=== PATIENT | male | born 1935 | race Caucasian/White ===

== ENCOUNTER 2017-02-12 07:27 | Outpatient (CLI) | payer MEDICARE, OTHER | END 2017-02-12 07:28 | disposition home or self-care (01) | LOC: LAB.N 07:27 | PROVIDERS: ATTEND Urology | DX: C61 Malignant neoplasm of prostate (principal); R03.0 Elevated blood-pressure reading, without diagnosis of hypertension | CPT/HCPCS: 36415; 84153 ==

== ENCOUNTER 2018-02-09 13:04 | Outpatient (CLI) | payer MEDICARE, OTHER | END 2018-02-09 13:05 | LOC: LAB.N 13:04 | PROVIDERS: ATTEND Urology | DX: C61 Malignant neoplasm of prostate (principal) | CPT/HCPCS: 36415; 84153 ==

== ENCOUNTER 2019-03-05 08:00 | Outpatient (CLI) | payer MEDICARE, OTHER | END 2019-03-05 23:59 | disposition home or self-care (01) | LOC: LAB.N 08:00 | PROVIDERS: ATTEND Urology | DX: Z85.46 Personal history of malignant neoplasm of prostate (principal) | CPT/HCPCS: 36415; 84153 ==

== ENCOUNTER 2022-03-29 11:10 | Outpatient (CLI) | payer MEDICARE, OTHER | END 2022-03-29 11:11 | disposition EMS.NT | LOC: EMS 11:10 | DX: R41.0 Disorientation, unspecified (principal) ==

== ENCOUNTER 2022-08-21 12:15 | Emergency (ER) | payer MEDICARE, OTHER ==
[2022-08-21 16:15] VITALS: BP 154/52
--- NOTE | 2022-08-21 16:29 | ED Physician Documentation ---
History of Present Illness - Stated complaint Stated Complaint: WEAKNESS/SOA - Chief complaint Chief Complaint: Back Pain - History obtained from History obtained from: Patient, Family - Additonal information Additional information: The patient is brought to the emergency department by his for chief complaint of difficulty walking over the last couple of days. The patient has a history of dementia and is not able to give much history himself. The states he has had dementia for about 5 years but seems worse in the last year. He is often forgetful and they were seen a couple of times at [facility] last week for concerns regarding the dementia. Apparently at that time, he was not having any trouble with the walking, however. Patient's states that just seems as though the patient is generally weak and a little off balance. However, she has not noticed any focal deficits. No infectious symptoms such as cough or dysuria. Patient has not had any fevers. Although he stated in triage to the triage nurse that he had had shortness of breath, the patient denies it now and the states she that the patient has not made any such complaints to her at home. She also has not objectively noticed any dyspnea. Review of the records from [place] reveals that he was seen for reasons that were unclear at their ED but seem to center around the dementia. Patient does not have a primary care physician which seems to be part of the issue. The states that they do have an appointment coming up on Friday which is 5 days from now with a [facility] Records also reveal that the patient did see psychosocial rehabilitation counselor over at [facility], And discussed the options of in-home care assisted living facilities, and memory care, but the son was concerned a bout the cost and lack of coverage from insurance and wanted to be able to speak with the rest of the family before making a decision as to what to do with the patient. Review of Systems Ten Systems: 10 systems reviewed and negative Constitutional: reports: Reviewed and negative Eyes: reports: Reviewed and negative Ears: reports: Reviewed and negative Nose: reports: Reviewed and negative Throat: reports: Reviewed and negative Cardiac: reports: Reviewed and negative Respiratory: reports: Reviewed and negative GI: reports: Reviewed and negative : reports: Reviewed and negative Skin: reports: Reviewed and negative Musculoskeletal: reports: Reviewed and negative Neurologic: reports: Generalized weakness Psychiatric: reports: Reviewed and negative Endocrine: reports: Reviewed and negative Immunocompromised: reports: Reviewed and negative PD PAST MEDICAL HISTORY - Allergies Allergies/Adverse Reactions: Allergies Allergy/AdvReac Type Severity Reaction Status Date / Time No Known Drug Allergies Allergy Verified 08/21/22 12:47 PD ED PE NORMAL - Vitals Vital signs reviewed: Yes - General General: No acute distress, Well developed/nourished, Other (Alert and conversant, but somewhat repetitive in his speech.) - HEENT HEENT: Atraumatic, PERRL, EOMI, Moist mucous membranes - Neck Neck: Supple, no meningeal sign - Cardiac Cardiac: RRR, No murmur - Respiratory Respiratory: No respiratory distress, Clear bilaterally - Abdomen Abdomen: Soft, Non tender, Non distended - Derm Derm: Normal color, Warm and dry, No rash - Extremities Extremities: No deformity, No edema, No calf tenderness / cord - Neuro Neuro: Other (Alert and conversant. Otherwise grossly intact. Oriented to self and the fact that he is at the hospital.) - Psych Psych: Normal mood, Normal affect Results - Vitals Vitals: Oxygen O2 Source Room air - Labs Labs: Laboratory Tests 08/21/22 08/21/22 08/21/22 16:45 16:45 16:45 WBC 6.6 RBC 3.94 L Hgb 12.1 L Hct 37.3 L MCV 94.7 H MCH 30.7 MCHC 32.4 RDW 16.2 H Plt Count 177 MPV 10.1 Neut # (Auto) 3.6 Lymph # (Auto) 2.1 Bell # (Auto) 0.7 Eos # (Auto) 0.1 Baso # (Auto) 0.0 Absolute Nucleated RBC 0.00 Nucleated RBC % 0.0 Sodium 140 Potassium 3.9 Chloride 102 Carbon Dioxide 28 Anion Gap 10.0 BUN 13 Creatinine 1.4 H Estimated GFR (MDRD) 48 L Glucose 92 Calcium 9.3 Total Bilirubin 0.8 AST 31 ALT 19 Alkaline Phosphatase 63 B-Natriuretic Peptide 119 H Total Protein 7.3 Albumin 4.2 Globulin 3.1 Albumin/Globulin Ratio 1.4 Lipase 56 H PD MEDICAL DECISION MAKING - ED course Complexity details: reviewed results, re-evaluated patient, considered differential, d/w patient ED course: The patient's work-up was unremarkable, and he passed an ambulation test without difficulty. Most of the concerns regarding his condition seemed to be chronic, and pt had an appointment coming up with his PCP, as well as had just had an eval by CLIFFORD at [place]. I felt he was stable for d/c home. We have discussed the usual indications for return. Departure - Departure Disposition: 01 Home, Self Care Clinical Impression: Dehydration Dementia Qualifiers: Dementia type: unspecified type Dementia severity: moderate Dementia behavioral or psychological symptom: without behavioral, psychotic, or mood disturbance or anxiety Qualified Code(s): F03.B0 - Unspecified dementia, moderate, without behavioral disturbance, psychotic disturbance, mood disturbance, and anxiety Condition: Stable Instructions: ED Dehydration, ED Dementia Caregiver Support Comments: The labs look good, as does the EKG and chest x-ray. You have not been drinking enough fluid lately, and have likely been dehydrated, which can cause weakness and imbalance. You have been hydrated with a liter of IV fluid in the ER today. It is very important you drink plenty of water every day. Mountain Dew does not take the place of water, as this will actually make you more dehydrated by causing your kidneys to put out excess fluid. Please continue your plans to follow-up with your primary doctor early next week to discuss further care for the dementia. Discharge Date/Time: 08/21/22 17:23
[2022-08-21 16:55] LABS: BASOPHILS % (AUTO) 0.5 %; EOSINOPHILS # (AUTO) 0.1 10^3/uL (0.0-0.7); HCT - HEMATOCRIT 37.3 % (42.0-52.0); HGB - HEMOGLOBIN 12.1 g/dL (14.0-18.0); LYMPHOCYTES # (AUTO) 2.1 10^3/uL (1.5-3.5); LYMPHOCYTES % (AUTO) 31.7 %; MEAN CORPUSCULAR HEMOGLOBIN 30.7 pg (27.0-31.0); MEAN CORPUSCULAR HGB CONC 32.4 g/dL (32.0-36.0); MEAN CORPUSCULAR VOLUME 94.7 fL (80.0-94.0); MEAN PLATELET VOLUME 10.1 fL (7.4-11.4); MONOCYTES # (AUTO) 0.7 10^3/uL (0.0-1.0); MONOCYTES % (AUTO) 11.1 %; NEUTROPHILS # (AUTO) 3.6 10^3/uL (1.5-6.6); NEUTROPHILS % (AUTO) 54.5 %; PLT - PLATELET COUNT 177 10^3/uL (130-450); RED BLOOD COUNT 3.94 10^6/uL (4.70-6.10); RED CELL DISTRIBUTION WIDTH 16.2 % (12.0-15.0); WHITE BLOOD COUNT 6.6 x10^3/uL (4.8-10.8)
--- NOTE | 2022-08-21 16:57 | XRAY Report ---
PROCEDURE: Chest 1 View X-Ray INDICATIONS: chest pain TECHNIQUE: One view of the chest was acquired. COMPARISON: None. FINDINGS: Surgical changes and devices: Large joint wires Lungs and pleura: Right costophrenic sulcus not included on exam. Minimal lungs and pleural spaces a re clear Mediastinum: Mediastinal contours appear normal. Heart size is normal. Bones and chest wall: Degenerative changes noted in both shoulders. Probable loose bodies noted in t he right. There has been resection of the distal right clavicle IMPRESSION: No acute cardiopulmonary findings Reviewed by: Alexi La MD on 08/21/2022 3:56 PM [place] Approved by: Alexi La MD on 08/21/2022 3:56 PM [place] Station ID: [id number]
[2022-08-21 17:02] LABS: ALBUMIN 4.2 g/dL (3.2-5.5); ALBUMIN/GLOBULIN RATIO 1.4 (1.0-2.2); BILIRUBIN,TOTAL 0.8 mg/dL (0.2-1.0); CALCIUM 9.3 mg/dL (8.5-10.3); CREATININE 1.4 mg/dL (0.6-1.2); POTASSIUM 3.9 mmol/L (3.5-5.0); TOTAL PROTEIN 7.3 g/dL (6.7-8.2)
== END 2022-08-21 17:23 | disposition home or self-care (01) ==
LOC: ED 12:15
DX: F03.B0 Unspecified dementia, moderate, without behavioral disturbance, psychotic disturbance, mood disturbance, and anxiety (principal); E86.0 Dehydration
CPT/HCPCS: 36415; 80053; 83690; 83880; 85025; 93005; 99282; 99283

== ENCOUNTER 2022-08-30 09:47 | Emergency (ER) | payer MEDICARE, OTHER ==
[2022-08-30 10:22] LABS: BASOPHILS % (AUTO) 0.4 %; EOSINOPHILS # (AUTO) 0.1 10^3/uL (0.0-0.7); EOSINOPHILS % (AUTO) 2.9 %; HCT - HEMATOCRIT 35.8 % (42.0-52.0); HGB - HEMOGLOBIN 11.5 g/dL (14.0-18.0); LYMPHOCYTES # (AUTO) 1.4 10^3/uL (1.5-3.5); MEAN CORPUSCULAR HEMOGLOBIN 30.3 pg (27.0-31.0); MEAN CORPUSCULAR HGB CONC 32.1 g/dL (32.0-36.0); MEAN CORPUSCULAR VOLUME 94.2 fL (80.0-94.0); MEAN PLATELET VOLUME 9.8 fL (7.4-11.4); MONOCYTES # (AUTO) 0.5 10^3/uL (0.0-1.0); NEUTROPHILS # (AUTO) 2.9 10^3/uL (1.5-6.6); NEUTROPHILS % (AUTO) 58.5 %; PLT - PLATELET COUNT 186 10^3/uL (130-450); RED CELL DISTRIBUTION WIDTH 15.9 % (12.0-15.0); WHITE BLOOD COUNT 4.9 x10^3/uL (4.8-10.8)
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
[2022-08-30 10:36] LABS: ACETAMINOPHEN < 10 ug/mL (10-30); ALBUMIN 3.7 g/dL (3.2-5.5); ALBUMIN/GLOBULIN RATIO 1.2 (1.0-2.2); ALKALINE PHOSPHATASE 59 IU/L (42-121); ALT ALANINE AMINOTRANSFERASE 27 IU/L (10-60); AST ASPARTATE AMINOTRANSFERASE 43 IU/L (10-42); BILIRUBIN,TOTAL 0.6 mg/dL (0.2-1.0); BUN - BLOOD UREA NITROGEN 17 mg/dL (6-20); CARBON DIOXIDE - CO2 26 mmol/L (21-32); CHLORIDE 102 mmol/L (101-111); CREATININE 1.4 mg/dL (0.6-1.2); ETOH - ETHANOL < 5.0 mg/dL; GFR - MDRD 48 (>89); GLUCOSE 101 mg/dL (70-100); LIPASE 49 U/L (22-51); POTASSIUM 3.8 mmol/L (3.5-5.0); SALICYLATE < 6.0 mg/dL; SODIUM 139 mmol/L (135-145); TOTAL PROTEIN 6.8 g/dL (6.7-8.2)
[2022-08-30 10:39] LABS: MUDS CUTOFF CONCENTRATIONS CUTOFF CONC BELOW:
[2022-08-30 10:42] LABS: BILIRUBIN,URINE NEGATIVE (NEGATIVE); GLUCOSE, URINE (UA) NEGATIVE (NEGATIVE); KETONES,URINE (UA) NEGATIVE (NEGATIVE); LEUKOCYTE ESTERASE, URINE TRACE (NEGATIVE); NITRITE,URINE NEGATIVE (NEGATIVE); OCCULT BLOOD,URINE NEGATIVE (NEGATIVE); PROTEIN,URINE TRACE mg/dL (NEGATIVE); UROBILINOGEN,URINE 0.2 (NORMAL) E.U./dL (NORMAL)
[2022-08-30 10:55] LABS: AMPHETAMINE SCREEN,URINE NEGATIVE (NEGATIVE); BARBITURATE SCREEN,UR NEGATIVE (NEGATIVE); BENZODIAZEPINES SCREEN, URINE NEGATIVE (NEGATIVE); CLARITY,URINE CLEAR (CLEAR); COCAINE SCREEN URINE NEGATIVE (NEGATIVE); METHADONE SCREEN, URINE NEGATIVE (NEGATIVE); METHAMPHETAMINES SCREEN, URINE NEGATIVE (NEGATIVE); OPIATE SCREEN, URINE NEGATIVE (NEGATIVE); OXYCODONE SCREEN, URINE NEGATIVE (NEGATIVE); PROPOXYPHENE SCREEN, URINE NEGATIVE (NEGATIVE); THC CANNABINOID SCREEN, URINE NEGATIVE (NEGATIVE); TRICYCLIC ANTIDEPRESSANT,URINE NEGATIVE (NEGATIVE)
[2022-08-30 11:05] LABS: BACTERIA,URINE Few /HPF (None Seen); RBC,URINE 0-5 /HPF (0-5); SQUAMOUS EPITHELIAL CELL,UR RARE Squamous (<= Few); WBC,URINE 0-3 /HPF (0-3)
[2022-08-30] MEDS: DONEPEZIL 5 MG TABLET PO SCH (20:44)
[2022-08-30] MEDS: MEMANTINE 5 MG TABLET PO SCH (20:44)
[2022-08-30] MEDS: QUEtiapine 25 MG TABLET PO SCH (20:44)
[2022-08-30] MEDS ORDERED: OLANZapine ODT 5 MG TABLET TL STA ×2 (21:54→21:55)
[2022-08-30] MEDS ORDERED: LORazepam 2 MG/ML VIAL IM STA (23:16)
[2022-08-30] MEDS ORDERED: LORazepam 2 MG/ML VIAL ONE (23:17)
--- NOTE | 2022-08-30 23:18 | ED Physician Documentation ---
ED Addendum - Addendum Addendum: 08/30/22 23:17 Care of patient signed out to me by Dr. Omalley. Please see her note for detailed H+P. Patient became increasingly agitated. Initially, he was wandering outside of his room and was able to be redirected back into his room, though reluctantly. He was given the dose of QHS seroquel ordered by Dr. Omalley. He continued to get up and wander, at times raising his voice to staff and insisting he can walk wherever he wants. After much coaxing, he eventually was corralled back into his room and was given 10mg TL zyprexa, which he again took willingly and thus these medications (zyprexa, seroquel) were given to help him sleep rather than being used as a restraint. Unfortunately, his behavior continued to escalate to the point of requiring IM lorazepam which is now being administered for behavior that has become dangerous for patient care (both this patient, as he is unsteady in gait and thus fall risk, as well as other patients, as he has tried to walk into other patient's rooms at times). Thus the IM lorazepam is chemical restraint and appropriate documentation is filled out in this chart by me.
--- NOTE | 2022-08-31 00:06 | ED Physician Documentation ---
Restraint [id number] - Immediate Situation Face to Face Evaluation Date: 08/31/22 Face to Face Evaluation Time: 00:04 Restraint Classification: Violent, chemical Restraint Type: Physical hold - Patient's Reaction & Behaviors Safety: Physically safe Other: Resting quietly - Behavioral Condition Attitude: Other (confused) Behavior: Withdrawn Orientation: Person Mood: Other (drowsy due to medications given) - Evaluation Review of Systems: see H+P Pertinent History/Illicit Drugs/Medications/Results: see H+P - Plan Need to Continue or Terminate Violent or Chemical Restraint: chemical restraints only at this time; cannot discontinue medications already given.
[2022-08-31] MEDS ORDERED: LORazepam 2 MG/ML VIAL IM STA ×2 (04:34→22:20)
--- NOTE | 2022-08-31 05:15 | ED Physician Documentation ---
Restraint [id number] - Immediate Situation Face to Face Evaluation Date: 08/31/22 Face to Face Evaluation Time: 05:13 Restraint Classification: Violent, chemical w/ physical hold Restraint Type: Physical hold - Patient's Reaction & Behaviors Safety: Non-compliant Verbal: Demanding Harm: Potential harm to others Physical: Aggressive behavior - Behavioral Condition Attitude: Indifferent Behavior: Agitated Orientation: Person Mood: Angry - Evaluation Review of Systems: see H+P Pertinent History/Illicit Drugs/Medications/Results: see H+P - Plan Need to Continue or Terminate Violent or Chemical Restraint: chemical restraint only; cannot discontinue medication that has been given and this medication is not ordered as a scheduled medication
[2022-08-31] MEDS: ASPIRIN CHEW 81 MG TABLET PO SCH (14:51)
[2022-08-31] MEDS: amLODIPine 5 MG TABLET PO SCH (14:51)
[2022-08-31] MEDS: METOPROLOL SUCCINATE 25 MG TABLET PO SCH (14:52)
[2022-08-31] MEDS: MEMANTINE 5 MG TABLET PO SCH ×2 (14:52→20:48)
[2022-08-31] MEDS: haloperidoL 1 MG TABLET PO SCH ×2 (14:52→20:48)
[2022-08-31] MEDS ORDERED: HALOPERIDOL 5 MG/ML VIAL IM STA ×2 (15:57→22:16)
[2022-08-31] MEDS ORDERED: diphenhydrAMINE ELIXIR 25 MG/10 ML UDC PO STA (15:57)
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
[2022-08-31] MEDS: DONEPEZIL 5 MG TABLET PO SCH (20:48)
[2022-08-31] MEDS: QUEtiapine 25 MG TABLET PO SCH ×2 (20:48→22:13)
[2022-08-31] MEDS ORDERED: LORazepam 2 MG/ML VIAL ONE (22:15)
--- NOTE | 2022-08-31 22:19 | ED Physician Documentation ---
Restraint [id number] - Immediate Situation Face to Face Evaluation Date: 08/31/22 Face to Face Evaluation Time: 22:22 Restraint Classification: Violent, chemical Restraint Type: Physical hold (Bed in Trendelenburg, to encourage patient to stay in bed) - Patient's Reaction & Behaviors Safety: Physically unsafe, Non-compliant Harm: Potential harm to others Physical: Aggressive behavior, Kicking - Behavioral Condition Attitude: Indifferent Behavior: Agitated Orientation: Disoriented to all Mood: Angry - Evaluation Review of Systems: see H+P Pertinent History/Illicit Drugs/Medications/Results: see H+P - Plan Need to Continue or Terminate Violent or Chemical Restraint: One-time order for medication, unable to Discontinue once medication has been administered
[2022-08-31] MEDS ORDERED: QUEtiapine 25 MG TABLET PO STA (23:48)
--- NOTE | 2022-09-01 00:23 | TELEPSYCH PHYS NOTE ---
Telepsych Consultation Note Consult: Name: PRETTY FREEMAN : 1935 Date and Time: 09/01/2022 2:12:09 AM Location of the patient: [facility] ED Location of the doctor: [place] Length of consult: 45 min This evaluation was conducted via video telepsychiatry with the assistance of onsite staff Reason for consult: agitation Requested by: History of Present Illness: Patient is 86-year-old male with a history of dementia was brought to the ER due to agitation in the home. The patient has been agitated in the ER as well. He is currently receiving Haldol 1 mg PO BID and cervical 25 mg HS (both start in the ER). He is also received Haldol I am, Zyprexa IM, and Ativan I am at times what you episodes. Psychiatry was consult for medication recommendations. When interviewed, the patient did not answer questions and did not make eye contact. He completely ignored interviewer while staring at the ceiling closing his eyes. No useful information could be gathered. Collateral Contacted: No Reason for not contacting the collateral:None available Sleep issues?: Yes Sleep Quantity: Sleep Quality: Psychiatric History/Treatment History: Past diagnoses: dementia Hospitalizations: No Current Treatment:No Suicide Assessment: PSS-3: 1) Over the past 2 weeks have you felt down, depressed or hopeless? Unknown-NA 2) Over the past 2 weeks have you had thoughts of killing yourself? Unknown-NA 3) Have you ever in your life attempted to kill yourself? Unknown-NA Within the past 6 months? [facility] Safety Assessment: Risk Factors Stressors: none Attempts/Self-injury: Unknown-NA Impulsivity:Unknown-NA Drug/Alcohol History:Unknown-NA Trauma History:Unknown-NA Access to firearms:Unknown-NA HI/Violence/Property destruction:Unknown-NA Legal: Unknown-NA Family Psych History:Unknown-NA Family History of suicide:Unknown-NA Protective Factors: Can handle stress well? No Congregational? Unknown-NA External: Social supports/ Therapeutic relationships: Yes Description: Relationship history: Living situation: lives with Employment: No Education: unknown Responsibility to family/children/work: No Future orientation:Unknown-NA Health History: Medical History: HTN Medications & Freq: amlodipine, aspirin, Aricept, Namenda, metoprolol Allergies: nkda Mental Status Exam: Appearance and Attire: Psychomotor agitation: Psychomotor retardation Attitude and behavior: Guarded Speech: Selectively mute Mood: unable to assess Affect: Constricted Thought process: Circumstantial Thought content: Perception: unable to assess Intel: unable to assess Abstract: Poor reasoning Language: unable to assess Orientation: Oriented to person Sense: unknown Knowledge: unknown Memory: unable to assess Insight: Severe impairment Judgement: Moderate impairment Gait: Unable to assess, patient lying down Impression/Risk Assessment: Current Suicide Risk Elevated? No Current Violence Risk Elevated? Yes Issues with ability to care for self? Yes Summary: The pt is an 89 yo male with dementia who arrives in the ER due to agitation and confusion. Psychiatry was consulted for med recommendations. Benzos should be avoided if possible as it can worsen confusion. The pt is unlikely to benefit from inpt care. He should be released home with meds if possible. Diagnosis: F03.91 Unspecified dementia with behavioral disturbance CPT Codes: 75080 - Psychiatric Diagnostic Evaluation with Medical Services Treatment Plan: General: Level of Care: pt is currnently under MARY JANE. Staff is trying to contact family to possibly sent the pt home Psychiatric Clearance: No Observation level 1:1 needed?: Yes Pharmacological: Continue Haldol 1 mg PO BID. Start Seroquel 25 mg QAM and 50 mg HS. Utilize Haldol or Zyprexa IM for acute agitation Patient psychotic?No Therapy: Supportive Follow up needed while in the hospital?: Yes Number of times: Daily Discussed plan with onsite steamtable worker: Yes Who Dr. Omalley Other: n/a Mitesh Tim MD [facility] List names and roles of persons who participated in consult: Mitesh Tim MD. [facility]
--- NOTE | 2022-09-01 04:37 | ED Physician Documentation ---
ED Addendum - Addendum Addendum: Telepsych was consulted during the day for medication recommendations. I did speak with Dr. Tim Regarding the patient's case. Per Dr. Tim the patient is unlikely to benefit from inpatient care and should be released home with meds if possible. He recommends continuing Haldol 1 mg p.o. twice daily. He recommends starting Seroquel 25 mg every morning and increasing at the already started night Seroquel dose to 50 mg.He also recommends utilizing Haldol or Zyprexa IM for acute agitation with the avoidance of benzodiazepines if possible. I have ordered the adjusted doses of Seroquel scheduled for the patient.
[2022-09-01] MEDS: amLODIPine 5 MG TABLET PO SCH (12:28)
[2022-09-01] MEDS: METOPROLOL SUCCINATE 25 MG TABLET PO SCH (12:28)
[2022-09-01] MEDS: haloperidoL 1 MG TABLET PO SCH ×2 (12:28→21:00)
[2022-09-01] MEDS: MEMANTINE 5 MG TABLET PO SCH ×2 (12:28→21:00)
[2022-09-01] MEDS: ASPIRIN CHEW 81 MG TABLET PO SCH (12:28)
[2022-09-01] MEDS: QUEtiapine 25 MG TABLET PO SCH (12:28)
[2022-09-01] MEDS ORDERED: QUEtiapine 25 MG TABLET PO SCH (21:00)
[2022-09-01] MEDS: DONEPEZIL 5 MG TABLET PO SCH (21:00)
[2022-09-02] MEDS: QUEtiapine 25 MG TABLET PO SCH (12:29)
[2022-09-02] MEDS: METOPROLOL SUCCINATE 25 MG TABLET PO SCH (12:29)
[2022-09-02] MEDS: haloperidoL 1 MG TABLET PO SCH (12:29)
[2022-09-02] MEDS: MEMANTINE 5 MG TABLET PO SCH (12:29)
[2022-09-02] MEDS: ASPIRIN CHEW 81 MG TABLET PO SCH (12:29)
[2022-09-02] MEDS: amLODIPine 5 MG TABLET PO SCH (12:29)
--- NOTE | 2022-09-02 13:41 | ED Physician Documentation ---
ED Addendum - Addendum Addendum: 09/02/22 13:37 Yesi our health social work professor had talked with the patient's and investigated placement options. He is [employer] coverage/ for life and apparently the long- term care coverage will still require [id number] expense. This was cost prohibitive for the family. The patient has been doing well here the past couple of days once started on a regimen of mood stabilizing medication including Haldol 1 mg twice daily and Seroquel 50 mg at night. At this point the option is for the to have the patient back home. She is willing to do this with the above prescriptions and see how he does with those. He was positive for COVID but has minimal respiratory symptoms and good vital signs and saturations. Consideration would be if the current viral illness is causing some added agitation and therefore the behavioral abnormalities. Hopefully that would be short-term then as the COVID passes over the next couple of weeks. However he has had dementia and this may be just a natural progression with some behavioral manifestations. I will send the prescriptions to the [facility]. Objective: The patient is awake and conversant. He is cooperative. He did have some breakfast. No report of agitation or behavioral abnormalities overnight. Assessment: 1. History of dementia 2. Dementia with behavioral abnormality, new 3. COVID infection Disposition: The patient is discharged home in stable condition.
[2022-09-02 15:07] VITALS: BP 124/64
== END 2022-09-02 15:15 | disposition home or self-care (01) ==
LOC: EDUNIT# → ED 09:47
DX: F03.911 Unspecified dementia, unspecified severity, with agitation (principal); U07.1 COVID-19
CPT/HCPCS: 36415; 80053; 80306; 80307; 81001; 83690; 84439; 84443; 85025; 87086; 87635; 96372; 99281; 99285; A9270; G0425; G0480; J2060; Q3014; 80320; 80329; 81003

== ENCOUNTER → 2022-08-30 | Outpatient (CLI) | payer MEDICARE, OTHER | END | disposition critical access hospital (66) | LOC: EMS 09:30 | DX: Z04.6 Encounter for general psychiatric examination, requested by authority (principal); F03.911 Unspecified dementia, unspecified severity, with agitation | CPT/HCPCS: A0425; A0429 ==

== ENCOUNTER 2022-09-02 15:20 | Outpatient (CLI) | payer MEDICARE, OTHER | END 2022-09-02 15:21 | disposition home or self-care (01) | LOC: EMS 15:20 | PROVIDERS: ATTEND Emergency Medicine | DX: R41.0 Disorientation, unspecified (principal); F03.911 Unspecified dementia, unspecified severity, with agitation | CPT/HCPCS: A0425; A0428 ==

== ENCOUNTER 2022-11-11 21:20 | Outpatient (CLI) | payer MEDICARE, OTHER | END 2022-11-11 21:21 | disposition critical access hospital (66) | LOC: EMS 21:20 | DX: R33.9 Retention of urine, unspecified (principal); R10.31 Right lower quadrant pain; N48.9 Disorder of penis, unspecified | CPT/HCPCS: A0425; A0429 ==

== ENCOUNTER 2022-11-11 21:38 | Emergency (ER) | payer MEDICARE, OTHER ==
--- OUTSIDE RECORDS SUMMARY | 2022-11-11 21:49 | EXTERNAL MEDICAL SUMMARY RPT | Continuity of Care Document ---
:1935 Author Organization Helper Address [address] [place] [address] Phone Care Team Providers Name Role Phone Perez Soria Unavailable Unavailable Allergies and Intolerances date description facility type (no date) No Known Drug Allergies [facility] ([facility]kn own) Encounters No information. Functional Status No information. Immunizations No information. Medications date description facility 2022-08-13 00:00 Furosemide [facility] Problems date description facility 2022-08-13 00:00 Shortness of breath [facility] 2022-08-16 00:00 Dementia [facility] 2022-08-16 00:00 Acute situational disturbance [facility] Procedures date description facility 2022-08-13 00:00 X-ray of chest, single view [facility] Results/Labs test date author facility value unit interpret ation Result panel 1 (unknown) (no date[facility]) Result panel 2 (unknown) (no date) (unknown[facility]) Result panel 3 (unknown) (no date) (unknown[facility]) Result panel 4 (unknown) (no date) (unknown[facility]) Result panel 5 (unknown) (no date) (unknown[facility]) Result panel 6 (unknown) (no date) (unknown[facility]) Result panel 7 (unknown) (no date) (unknown[facility]) Result panel 8 (unknown) (no date) (unknown[facility]) Result panel 9 (unknown) (no date) (unknown[facility]) Result panel 10 (unknown) (no date) (unknown[facility]) Result panel 11 (unknown) (no date) (unknown[facility]) Result panel 12 (unknown) (no date) (unknown[facility]) Result panel 13 (unknown) (no date) (unknown[facility]) Result panel 14 (unknown) (no date) (unknown[facility]) Result panel 15 (unknown) (no date) (unknown[facility]) Result panel 16 (unknown) (no date) (unknown[facility]) Result panel 17 (unknown) (no date) (unknown[facility]) Result panel 18 (unknown) (no date) (unknown[facility]) Result panel 19 (unknown) (no date) (unknown[facility]) Result panel 20 (unknown) (no date) (unknown[facility]) Result panel 21 (unknown) (no date) (unknown[facility]) Result panel 22 (unknown) (no date) (unknown[facility]) Result panel 23 (unknown) (no date) (unknown[facility]) Result panel 24 (unknown) (no date) (unknown[facility]) Result panel 25 (unknown) (no date) (unknown[facility]) Result panel 26 (unknown) (no date) (unknown[facility]) Result panel 27 (unknown) (no date) (unknown[facility]) Result panel 28 (unknown) (no date) (unknown[facility]) Result panel 29 (unknown) (no date) (unknown[facility]) Result panel 30 (unknown) (no date) (unknown[facility]) Result panel 31 (unknown) (no date) (unknown[facility]) Result panel 32 (unknown) (no date) (unknown[facility]) Result panel 33 (unknown) (no date) (unknown[facility]) Result panel 34 (unknown) (no date) (unknown[facility]) Result panel 35 (unknown) (no date) (unknown[facility]) Result panel 36 (unknown) (no date) (unknown[facility]) Result panel 37 (unknown) (no date) (unknown[facility]) Result panel 38 (unknown) (no date) (unknown[facility]) Result panel 39 (unknown) (no date) (unknown[facility]) Result panel 40 (unknown) (no date) (unknown[facility]) Result panel 41 (unknown) (no date) (unknown[facility]) Result panel 42 (unknown) (no date) (unknown[facility]) Result panel 43 (unknown) (no date) (unknown[facility]) Result panel 44 (unknown) (no date) (unknown[facility]) Result panel 45 (unknown) (no date) (unknown[facility]) Result panel 46 (unknown) (no date) (unknown[facility]) Result panel 47 (unknown) (no date) (unknown[facility]) Result panel 48 (unknown) (no date) (unknown[facility]) Result panel 49 (unknown) (no date) (unknown[facility]) Result panel 50 (unknown) (no date) (unknown[facility]) Result panel 51 (unknown) (no date) (unknown[facility]) Result panel 52 (unknown) (no date) (unknown[facility]) Result panel 53 (unknown) (no date) (unknown[facility]) Result panel 54 (unknown) (no date) (unknown[facility]) Result panel 55 (unknown) (no date) (unknown[facility]) Result panel 56 (unknown) (no date) (unknown[facility]) Result panel 57 (unknown) (no date) (unknown[facility]) Result panel 58 (unknown) (no date) (unknown[facility]) Result panel 59 (unknown) (no date) (unknown[facility]) Result panel 60 (unknown) (no date) (unknown[facility]) Result panel 61 (unknown) (no date) (unknown[facility]) Result panel 62 (unknown) (no date) (unknown[facility]) Result panel 63 (unknown) (no date) (unknown[facility]) Result panel 64 (unknown) (no date) (unknown[facility]) Result panel 65 (unknown) (no date) (unknown[facility]) Result panel 66 (unknown) (no date) (unknown[facility]) Result panel 67 (unknown) (no date) (unknown[facility]) Result panel 68 (unknown) (no date) (unknown[facility]) Result panel 69 (unknown) (no date) (unknown[facility]) Result panel 70 (unknown) (no date) (unknown[facility]) Result panel 71 (unknown) (no date) (unknown[facility]) Result panel 72 (unknown) (no date) (unknown[facility]) Result panel 73 (unknown) (no date) (unknown[facility]) Result panel 74 (unknown) (no date) (unknown[facility]) Result panel 75 (unknown) (no date) (unknown[facility]) Result panel 76 (unknown) (no date) (unknown[facility]) Result panel 77 (unknown) (no date) (unknown[facility]) Result panel 78 (unknown) (no date) (unknown[facility]) Result panel 79 (unknown) (no date) (unknown[facility]) Result panel 80 (unknown) (no date) (unknown[facility]) Result panel 81 (unknown) (no date) (unknown[facility]) Result panel 82 (unknown) (no date) (unknown[facility]) Result panel 83 (unknown) (no date) (unknown[facility]) Result panel 84 (unknown) (no date) (unknown) [facility]) Result panel 85 (unknown) (no date) (unknown[facility]) Result panel 86 (unknown) (no date) (unknown[facility]) Result panel 87 (unknown) (no date) (unknown[facility]) Result panel 88 (unknown) (no date) (unknown[facility]) Result panel 89 (unknown) (no date) (unknown[facility]) Result panel 90 (unknown) (no date) (unknown[facility]) Result panel 91 (unknown) (no date) (unknown[facility]) Result panel 92 (unknown) (no date) (unknown[facility]) Result panel 93 (unknown) (no date) (unknown[facility]) Result panel 94 (unknown) (no date) (unknown[facility]) Result panel 95 (unknown) (no date) (unknown[facility]) Result panel 96 (unknown) (no date) (unknown[facility]) Result panel 97 (unknown) (no date) (unknown[facility]) Result panel 98 (unknown) (no date) (unknown[facility]) Result panel 99 (unknown) (no date) (unknown[facility]) Result panel 100 (unknown) (no date) (unknown[facility]) Result panel 101 (unknown) (no date) (unknown[facility]) Result panel 102 (unknown) (no date) (unknown[facility]) Result panel 103 (unknown) (no date) (unknown[facility]) Result panel 104 (unknown) (no date) (unknown[facility]) Result panel 105 (unknown) (no date) (unknown[facility]) Result panel 106 (unknown) (no date) (unknown[facility]) Result panel 107 (unknown) (no date) (unknown[facility]) Result panel 108 (unknown) (no date) (unknown[facility]) Result panel 109 (unknown) (no date) (unknown[facility]) Result panel 110 (unknown) (no date) (unknown[facility]) Result panel 111 (unknown) (no date) (unknown[facility]) Result panel 112 (unknown) (no date) (unknown[facility]) Result panel 113 (unknown) (no date) (unknown[facility]) Result panel 114 (unknown) (no date) (unknown[facility]) Result panel 115 (unknown) (no date) (unknown[facility]) Result panel 116 (unknown) (no date) (unknown[facility]) Result panel 117 (unknown) (no (unknown) (unknown) (no value) (units (unk nown) date) unknown) (unknown) (no (unknown) (unknown) 08/13/22 (units (unkno wn) date) unknown) (unknown) (no (unknown) (unknown) [address] [place] [address] (units (unknown) date) unknown) (unknown) (no (unknown) (unknown) Accession Number: (units (unknown) date) [id number] unknown) (unknown) (no (unknown) (unknown) Age/Sex: 86 / M (units (unknown) date) Date of Service: unknown) (unknown) (no (unknown) (unknown) [place], [place] (units ( unknown) date) [id number] unknown) (unknown) (no (unknown) (unknown) Approved by: (units (u nknown) date) Olamide Montano M.D. on unknown) 08/13/2022 at 8:28 (unknown) (no (unknown) (unknown) Bones and chest (units (unknown) date) wall: No unknown) suspicious bony lesions. Overlying soft tissues (unknown) (no (unknown) (unknown) COMPARISON: (units (un known) date) [facility], unknown) CR, XR CHEST 1 VIEW, 11/02/2021, 8:42. (unknown) (no (unknown) (unknown) : 1935 (units (unknown) date) Acct:[id number] unknown) (unknown) (no (unknown) (unknown) Dictated by: (units (u nknown) date) Olamide Montano M.D. on unknown) 08/13/2022 at 8:28 (unknown) (no (unknown) (unknown) FINDINGS: (units (unkn own) date) unknown) (unknown) (no (unknown) (unknown) IMPRESSION: No (units (unknown) date) acute unknown) cardiopulmonary disease. (unknown) (no (unknown) (unknown) INDICATIONS: SOB (units (unknown) date) unknown) (unknown) (no (unknown) (unknown) [facility] (units (unknown) date) unknown) (unknown) (no (unknown) (unknown) Loc: ED (units (unkno wn) date) unknown) (unknown) (no (unknown) (unknown) Lungs and pleura: (units (unknown) date) Lungs are clear. unknown) No pleural effusions or pneumothorax. (unknown) (no (unknown) (unknown) [id number] (units (unk nown) date) unknown) (unknown) (no (unknown) (unknown) Mediastinum: (units (u nknown) date) Mediastinal unknown) contours appear normal. Heart size is normal. (unknown) (no (unknown) (unknown) No significant (units (unknown) date) discrepancy with unknown) the shift stacker radiology preliminary report. (unknown) (no (unknown) (unknown) Ordering (units (unkno wn) date) Provider: unknown) Ralph Fleming D.O. (unknown) (no (unknown) (unknown) PROCEDURE: XR (units ( unknown) date) CHEST 1V unknown) (unknown) (no (unknown) (unknown) Patient: (units (unkno wn) date) Juarez Freeman unknown) MR#: (unknown) (no (unknown) (unknown) Procedure: XR (units ( unknown) date) chest 1V unknown) (unknown) (no (unknown) (unknown) Signed (units (unkno wn) date) unknown) (unknown) (no (unknown) (unknown) Surgical changes (units (unknown) date) and devices: unknown) Sternotomy. (unknown) (no (unknown) (unknown) TECHNIQUE: One (units (unknown) date) view of the chest unknown) was acquired. (unknown) (no (unknown) (unknown) XRay Report (units (un known) date) unknown) (unknown) (no (unknown) (unknown) appear (units (unkno wn) date) unknown) (unknown) (no (unknown) (unknown) unremarkable. (units ( unknown) date) unknown) Result panel 118 (unknown) (no date) (unknown) (unknown) 0.9 % (unkn own) (unknown) (no date) (unknown) (unknown) 100 /ul (unkn own) (unknown) (no date) (unknown) (unknown) 11.0 % (unkn own) (unknown) (no date) (unknown) (unknown) 12.7 g/dl (unkn own) (unknown) (no date) (unknown) (unknown) 16.8 % (unkn own) (unknown) (no date) (unknown) (unknown) 178 x10 3/ul (unkn own) (unknown) (no date) (unknown) (unknown) 1900 /ul (unkn own) (unknown) (no date) (unknown) (unknown) 200 /ul (unkn own) (unknown) (no date) (unknown) (unknown) 3.0 % (unkn own) (unknown) (no date) (unknown) (unknown) 30.1 pg (unkn own) (unknown) (no date) (unknown) (unknown) 30.5 % (unkn own) (unknown) (no date) (unknown) (unknown) 32.8 % (unkn own) (unknown) (no date) (unknown) (unknown) 3500 /ul (unkn own) (unknown) (no date) (unknown) (unknown) 38.8 % (unkn own) (unknown) (no date) (unknown) (unknown) 4.22 x10 6/ul (unkn own) (unknown) (no date) (unknown) (unknown) 54.6 % (unkn own) (unknown) (no date) (unknown) (unknown) 6.4 x10 3/ul (unkn own) (unknown) (no date) (unknown) (unknown) 700 /ul (unkn own) (unknown) (no date) (unknown) (unknown) 91.9 fl (unkn own) Result panel 119 (unknown) (no date) (unknown) (unknown) 0.9 mg/dl (unkn own) (unknown) (no date) (unknown) (unknown) 1.4 (units unknown) (unknown) (unknown) (no date) (unknown) (unknown) 1.49 mg/dl (unkn own) (unknown) (no date) (unknown) (unknown) 106 mmol/l (unkn own) (unknown) (no date) (unknown) (unknown) 12 mg/dl (unkn own) (unknown) (no date) (unknown) (unknown) 143 mmol/l (unkn own) (unknown) (no date) (unknown) (unknown) 28 mmol/l (unkn own) (unknown) (no date) (unknown) (unknown) 3.0 g/dl (unkn own) (unknown) (no date) (unknown) (unknown) 3.6 mmol/l (unkn own) (unknown) (no date) (unknown) (unknown) 37 iu/l (unkn own) (unknown) (no date) (unknown) (unknown) 4.3 g/dl (unkn own) (unknown) (no date) (unknown) (unknown) 45 iu/l (unkn own) (unknown) (no date) (unknown) (unknown) 46 ml/min (unkn own) (unknown) (no date) (unknown) (unknown) 46 ml/min (unkn own) (unknown) (no date) (unknown) (unknown) 7.3 g/dl (unkn own) (unknown) (no date) (unknown) (unknown) 72 u/l (unkn own) (unknown) (no date) (unknown) (unknown) 8.1 (units unknown) (unknown) (unknown) (no date) (unknown) (unknown) 9.2 mg/dl (unkn own) (unknown) (no date) (unknown) (unknown) 99 mg/dl (unkn own) (unknown) (no date) (unknown) (unknown) 99 mg/dl (unkn own) Result panel 120 (unknown) (no date) (unknown) (unknown) 2.1 mg/dl (unkn own) (unknown) (no date) (unknown) (unknown) 217 u/l (unkn own) (unknown) (no date) (unknown) (unknown) 465 u/l (unkn own) Result panel 121 (unknown) (no (unknown) (unknown) (no value) (units (unk nown) date) unknown) (unknown) (no (unknown) (unknown) [id number] (units (unkn own) date) unknown) (unknown) (no (unknown) (unknown) 03:25 03:25 (units (un known) date) 03:25 unknown) (unknown) (no (unknown) (unknown) 03:27 (units (unkno wn) date) unknown) (unknown) (no (unknown) (unknown) 08/13/22 03:25 (units (unknown) date) unknown) (unknown) (no (unknown) (unknown) 08/13/22 03:27 (units (unknown) date) unknown) (unknown) (no (unknown) (unknown) 08/13/22 03:32 (units (unknown) date) unknown) (unknown) (no (unknown) (unknown) 08/13/22 (units (unkno wn) date) 08/13/22 08/13/22 unknown) Range/Units (unknown) (no (unknown) (unknown) 08/13/22 (units (unkno wn) date) unknown) (unknown) (no (unknown) (unknown) ALT 37 (<50) (units (u nknown) date) IU/L unknown) (unknown) (no (unknown) (unknown) AST 45 (17-59) (units (unknown) date) IU/L unknown) (unknown) (no (unknown) (unknown) Age/Sex: 86 / M (units (unknown) date) unknown) (unknown) (no (unknown) (unknown) Albumin 4.3 (units (un known) date) (3.5-5.0) g/dL unknown) (unknown) (no (unknown) (unknown) Albumin/Globulin (units (unknown) date) Ratio 1.4 unknown) (1.0-2.8) (unknown) (no (unknown) (unknown) Alkaline (units (unkno wn) date) Phosphatase 72 unknown) (38-126) U/L (unknown) (no (unknown) (unknown) Allergies (units (unkn own) date) unknown) (unknown) (no (unknown) (unknown) Allergy/AdvReac (units (unknown) date) Type Severity unknown) Reaction Status Date / Time (unknown) (no (unknown) (unknown) BUN 12 (9-20) (units ( unknown) date) mg/dL unknown) (unknown) (no (unknown) (unknown) BUN/Creatinine (units (unknown) date) Ratio 8.1 (6-22) unknown) (unknown) (no (unknown) (unknown) Baso # (Auto) (units ( unknown) date) 100 (0-100) /uL unknown) (unknown) (no (unknown) (unknown) Baso % (Auto) (units ( unknown) date) 0.9 (0-2) % unknown) (unknown) (no (unknown) (unknown) Blood Pressure (units (unknown) date) 179/74 H 08/13/22 unknown) 03:27 (unknown) (no (unknown) (unknown) Blood Pressure (units (unknown) date) 179/74 H unknown) (unknown) (no (unknown) (unknown) Calcium 9.2 (units (un known) date) (8.4-10.2) mg/dL unknown) (unknown) (no (unknown) (unknown) Carbon Dioxide (units (unknown) date) 28 (22-32) mmol/L unknown) (unknown) (no (unknown) (unknown) Chief complaint: (units (unknown) date) Shortness of unknown) Breath/Dyspnea (unknown) (no (unknown) (unknown) Chloride 106 (units (u nknown) date) (98-107) mmol/L unknown) (unknown) (no (unknown) (unknown) Traci Ervin (units (unknown) date) MD [Primary unknown) Care Provider] (unknown) (no (unknown) (unknown) Complete Blood (units (unknown) date) Count AUTO DIFF unknown) Stat (unknown) (no (unknown) (unknown) Comprehensive (units ( unknown) date) Metabolic Panel unknown) Stat (unknown) (no (unknown) (unknown) Course (units (unkno wn) date) unknown) (unknown) (no (unknown) (unknown) Creatinine 1.49 (units (unknown) date) H (0.66-1.25) unknown) mg/dL (unknown) (no (unknown) (unknown) : 1935 (units (unknown) date) Acct:[id number] unknown) (unknown) (no (unknown) (unknown) Date of Service: (units (unknown) date) 08/13/22 unknown) (unknown) (no (unknown) (unknown) Departure (units (unkn own) date) unknown) (unknown) (no (unknown) (unknown) Discharge Plan (units (unknown) date) unknown) (unknown) (no (unknown) (unknown) ED Orders (units (unkn own) date) unknown) (unknown) (no (unknown) (unknown) EKG-12 Lead Stat (units (unknown) date) unknown) (unknown) (no (unknown) (unknown) ER Physician: (units ( unknown) date) Ralph Fleming unknown) D.O. (unknown) (no (unknown) (unknown) Emergency Report (units (unknown) date) unknown) (unknown) (no (unknown) (unknown) Eos # (Auto) 200 (units (unknown) date) (0-450) /uL unknown) (unknown) (no (unknown) (unknown) Eos % (Auto) 3.0 (units (unknown) date) (2-4) % unknown) (unknown) (no (unknown) (unknown) Estimated GFR 46 (units (unknown) date) L (>60) mL/min unknown) (unknown) (no (unknown) (unknown) Exam (units (unkno wn) date) unknown) (unknown) (no (unknown) (unknown) General (units (unkno wn) date) unknown) (unknown) (no (unknown) (unknown) Globulin 3.0 (units (u nknown) date) (1.7-4.1) g/dL unknown) (unknown) (no (unknown) (unknown) Glucose 99 (units (unk nown) date) (80-110) mg/dL unknown) (unknown) (no (unknown) (unknown) HPI - General (units ( unknown) date) Adult unknown) (unknown) (no (unknown) (unknown) Hct 38.8 L (units (unk nown) date) (41-53) % unknown) (unknown) (no (unknown) (unknown) Hgb 12.7 L (units (unk nown) date) (13.5-17.5) g/dL unknown) (unknown) (no (unknown) (unknown) Initial Vital (units ( unknown) date) Signs unknown) (unknown) (no (unknown) (unknown) Initial Vital (units ( unknown) date) Signs: unknown) (unknown) (no (unknown) (unknown) [facility] (units (unknown) date) [address] [place] [address] unknown) [place] [address] (unknown) (no (unknown) (unknown) Lab Data (units (unkno wn) date) unknown) (unknown) (no (unknown) (unknown) Lab Results (units (un known) date) unknown) (unknown) (no (unknown) (unknown) Labs: (units (unkno wn) date) unknown) (unknown) (no (unknown) (unknown) Lipase 217 (units (unk nown) date) (23-300) U/L unknown) (unknown) (no (unknown) (unknown) Lipase Stat (units (un known) date) unknown) (unknown) (no (unknown) (unknown) Lymph # (Auto) (units (unknown) date) 1900 ([id number]) unknown) /uL (unknown) (no (unknown) (unknown) Lymph % (Auto) (units (unknown) date) 30.5 (25-40) % unknown) (unknown) (no (unknown) (unknown) MCH 30.1 (26-34) (units (unknown) date) PG unknown) (unknown) (no (unknown) (unknown) MCHC 32.8 (units (unkn own) date) (30-36) % unknown) (unknown) (no (unknown) (unknown) MCV 91.9 (units (unkno wn) date) (80-100) fL unknown) (unknown) (no (unknown) (unknown) Magnesium 2.1 (units ( unknown) date) (1.6-2.3) mg/dL unknown) (unknown) (no (unknown) (unknown) Magnesium Stat (units (unknown) date) unknown) (unknown) (no (unknown) (unknown) Medical Decision (units (unknown) date) Making unknown) (unknown) (no (unknown) (unknown) Mode of arrival: (units (unknown) date) Ambulatory unknown) (unknown) (no (unknown) (unknown) [place] # (Auto) (units ( unknown) date) 700 (0-900) /uL unknown) (unknown) (no (unknown) (unknown) [place] % (Auto) (units ( unknown) date) 11.0 (3-14) % unknown) (unknown) (no (unknown) (unknown) NT-proBNP (units (unkn own) date) (BNP-Adult 18+) unknown) Stat (unknown) (no (unknown) (unknown) Neut # (Auto) (units ( unknown) date) 3500 ([id number]) unknown) /uL (unknown) (no (unknown) (unknown) Neut % (Auto) (units ( unknown) date) 54.6 (50-75) % unknown) (unknown) (no (unknown) (unknown) No Known Drug (units ( unknown) date) Allergies Allergy unknown) Verified 08/13/22 03:27 (unknown) (no (unknown) (unknown) Ordered: (units (unkno wn) date) unknown) (unknown) (no (unknown) (unknown) Orders (units (unkno wn) date) unknown) (unknown) (no (unknown) (unknown) Oxygen Delivery (units (unknown) date) Method 08/13/22 unknown) 03:27 (unknown) (no (unknown) (unknown) Oxygen Delivery (units (unknown) date) Method Room Air unknown) (unknown) (no (unknown) (unknown) Patient History (units (unknown) date) unknown) (unknown) (no (unknown) (unknown) Patient: (units (unkno wn) date) Juarez Freeman unknown) MR#: M (unknown) (no (unknown) (unknown) Plt Count 178 (units ( unknown) date) (150-400) X103/uL unknown) (unknown) (no (unknown) (unknown) Potassium 3.6 (units ( unknown) date) (3.4-5.1) mmol/L unknown) (unknown) (no (unknown) (unknown) Pulse Oximetry (units (unknown) date) 99 08/13/22 03:27 unknown) (unknown) (no (unknown) (unknown) Pulse Oximetry (units (unknown) date) 99 unknown) (unknown) (no (unknown) (unknown) Pulse Rate 65 (units ( unknown) date) 08/13/22 03:27 unknown) (unknown) (no (unknown) (unknown) Pulse Rate 65 (units ( unknown) date) unknown) (unknown) (no (unknown) (unknown) RBC 4.22 L (units (unk nown) date) (4.5-5.9) X106/uL unknown) (unknown) (no (unknown) (unknown) RDW 16.8 H (units (unk nown) date) (11.6-14.8) % unknown) (unknown) (no (unknown) (unknown) Referrals: (units (unk nown) date) unknown) (unknown) (no (unknown) (unknown) Related Data (units (u nknown) date) unknown) (unknown) (no (unknown) (unknown) Respiratory Rate (units (unknown) date) 18 08/13/22 03:27 unknown) (unknown) (no (unknown) (unknown) Respiratory Rate (units (unknown) date) 18 unknown) (unknown) (no (unknown) (unknown) Result diagrams: (units (unknown) date) unknown) (unknown) (no (unknown) (unknown) Signed By: (units (unk nown) date) unknown) (unknown) (no (unknown) (unknown) Smoking Status: (units (unknown) date) Never smoker unknown) (unknown) (no (unknown) (unknown) Social History (units (unknown) date) (System 07/16/18 unknown) @ 14:34 by Brielle Leiva) (unknown) (no (unknown) (unknown) Sodium 143 (units (unk nown) date) (137-145) mmol/L unknown) (unknown) (no (unknown) (unknown) Source: patient (units (unknown) date) unknown) (unknown) (no (unknown) (unknown) Stated (units (unkno wn) date) complaint: sob unknown) (unknown) (no (unknown) (unknown) Substance Use (units ( unknown) date) Type: does not unknown) use (unknown) (no (unknown) (unknown) Temperature 97.9 (units (unknown) date) F 08/13/22 03:27 unknown) (unknown) (no (unknown) (unknown) Temperature 97.9 (units (unknown) date) F unknown) (unknown) (no (unknown) (unknown) Time Seen by (units (u nknown) date) Provider: unknown) 08/13/22 03:20 (unknown) (no (unknown) (unknown) Total Bilirubin (units (unknown) date) 0.9 (0.2-1.3) unknown) mg/dL (unknown) (no (unknown) (unknown) Total Creatine (units (unknown) date) Kinase 465 H unknown) (55-170) U/L (unknown) (no (unknown) (unknown) Total Protein (units ( unknown) date) 7.3 (6.3-8.2) unknown) g/dL (unknown) (no (unknown) (unknown) Troponin + CK (units ( unknown) date) Cardiac Panel unknown) Stat (unknown) (no (unknown) (unknown) Vital Signs - 8 (units (unknown) date) hr unknown) (unknown) (no (unknown) (unknown) Vital Signs (units (un known) date) unknown) (unknown) (no (unknown) (unknown) Vital signs: (units (u nknown) date) unknown) (unknown) (no (unknown) (unknown) WBC 6.4 (units (unkno wn) date) (4.5-11.0) unknown) X103/uL (unknown) (no (unknown) (unknown) XR chest 1V Stat (units (unknown) date) unknown) (unknown) (no (unknown) (unknown) [Embedded Image (units (unknown) date) Not Available] unknown) Result panel 122 (unknown) (no date) (unknown) (unknown) 0.018 ng/ml (unkn own) (unknown) (no date) (unknown) (unknown) 0.018 ng/ml (unkn own) (unknown) (no date) (unknown) (unknown) 1730 pg/ml (unkn own) (unknown) (no date) (unknown) (unknown) 1730 pg/ml (unkn own) (unknown) (no date) (unknown) (unknown) 2.1 mg/dl (unkn own) (unknown) (no date) (unknown) (unknown) 217 u/l (unkn own) (unknown) (no date) (unknown) (unknown) 465 u/l (unkn own) Result panel 123 (unknown) (no date) (unknown) (unknown) 0.018 ng/ml (unkn own) (unknown) (no date) (unknown) (unknown) 0.018 ng/ml (unkn own) (unknown) (no date) (unknown) (unknown) 0.7 % (unkn own) (unknown) (no date) (unknown) (unknown) 1730 pg/ml (unkn own) (unknown) (no date) (unknown) (unknown) 1730 pg/ml (unkn own) (unknown) (no date) (unknown) (unknown) 2.1 mg/dl (unkn own) (unknown) (no date) (unknown) (unknown) 217 u/l (unkn own) (unknown) (no date) (unknown) (unknown) 3.46 ng/ml (unkn own) (unknown) (no date) (unknown) (unknown) 465 u/l (unkn own) Result panel 124 (unknown) (no (unknown) (unknown) (no value) (units (unk nown) date) unknown) (unknown) (no (unknown) (unknown) <Electronically (units (unknown) date) signed by Ralph Fleming D.O.> (unknown) (no (unknown) (unknown) [phone] (units (unkn own) date) unknown) (unknown) (no (unknown) (unknown) 03:25 03:25 03:25 (units (unknown) date) unknown) (unknown) (no (unknown) (unknown) 03:27 (units (unkno wn) date) unknown) (unknown) (no (unknown) (unknown) 08/13/22 03:25 (units (unknown) date) unknown) (unknown) (no (unknown) (unknown) 08/13/22 03:27 (units (unknown) date) unknown) (unknown) (no (unknown) (unknown) 08/13/22 03:32 (units (unknown) date) unknown) (unknown) (no (unknown) (unknown) 08/13/22 0504 (units ( unknown) date) unknown) (unknown) (no (unknown) (unknown) 08/13/22 08/13/22 (units (unknown) date) 08/13/22 unknown) Range/Units (unknown) (no (unknown) (unknown) 08/13/22 (units (unkno wn) date) unknown) (unknown) (no (unknown) (unknown) 20 mg PO DAILY 3 (units (unknown) date) Days Qty: 3 0RF unknown) (unknown) (no (unknown) (unknown) ALT 37 (<50) IU/L (units (unknown) date) unknown) (unknown) (no (unknown) (unknown) AST 45 (17-59) (units (unknown) date) IU/L unknown) (unknown) (no (unknown) (unknown) Activity (units (unkno wn) date) Restrictions/Additi unknown) onal Instructions: (unknown) (no (unknown) (unknown) Age/Sex: 86 / M (units (unknown) date) unknown) (unknown) (no (unknown) (unknown) Albumin 4.3 (units (un known) date) (3.5-5.0) g/dL unknown) (unknown) (no (unknown) (unknown) Albumin/Globulin (units (unknown) date) Ratio 1.4 (1.0-2.8) unknown) (unknown) (no (unknown) (unknown) Alkaline (units (unkno wn) date) Phosphatase 72 unknown) (38-126) U/L (unknown) (no (unknown) (unknown) Allergies (units (unkn own) date) unknown) (unknown) (no (unknown) (unknown) Allergy/AdvReac (units (unknown) date) Type Severity unknown) Reaction Status Date / Time (unknown) (no (unknown) (unknown) Artifact noted in (units (unknown) date) baseline unknown) (unknown) (no (unknown) (unknown) Attestation: I (units (unknown) date) personally reviewed unknown) and interpreted this ECG as follows: (unknown) (no (unknown) (unknown) Auscultation: (units ( unknown) date) clear to unknown) auscultation bilaterally (unknown) (no (unknown) (unknown) BUN 12 (9-20) (units ( unknown) date) mg/dL unknown) (unknown) (no (unknown) (unknown) BUN/Creatinine (units (unknown) date) Ratio 8.1 (6-22) unknown) (unknown) (no (unknown) (unknown) Baso # (Auto) 100 (units (unknown) date) (0-100) /uL unknown) (unknown) (no (unknown) (unknown) Baso % (Auto) 0.9 (units (unknown) date) (0-2) % unknown) (unknown) (no (unknown) (unknown) Blood Pressure (units (unknown) date) 179/74 H 08/13/22 unknown) 03:27 (unknown) (no (unknown) (unknown) Blood Pressure (units (unknown) date) 179/74 H unknown) (unknown) (no (unknown) (unknown) CK-MB (CK-2) 3.46 (units (unknown) date) H (<2.37) ng/mL unknown) (unknown) (no (unknown) (unknown) CK-MB (CK-2) Rel (units (unknown) date) Index 0.7 L unknown) (1.5-5.0) % (unknown) (no (unknown) (unknown) Calcium 9.2 (units (un known) date) (8.4-10.2) mg/dL unknown) (unknown) (no (unknown) (unknown) Carbon Dioxide 28 (units (unknown) date) (22-32) mmol/L unknown) (unknown) (no (unknown) (unknown) Cardio (units (unkno wn) date) unknown) (unknown) (no (unknown) (unknown) Cardiovascular (units (unknown) date) unknown) (unknown) (no (unknown) (unknown) Cardiovascular: (units (unknown) date) Reports system unknown) reviewed and no additional complaints, except as (unknown) (no (unknown) (unknown) Chest x-ray: (units (u nknown) date) unknown) (unknown) (no (unknown) (unknown) Chief complaint: (units (unknown) date) Shortness of unknown) Breath/Dyspnea (unknown) (no (unknown) (unknown) Chloride 106 (units (u nknown) date) (98-107) mmol/L unknown) (unknown) (no (unknown) (unknown) Traci Ervin, (units (unknown) date) MD [Primary Care unknown) Provider] (unknown) (no (unknown) (unknown) Clinical (units (unkno wn) date) Impression: unknown) (unknown) (no (unknown) (unknown) Complete Blood (units (unknown) date) Count AUTO DIFF unknown) Stat (unknown) (no (unknown) (unknown) Comprehensive (units ( unknown) date) Metabolic Panel unknown) Stat (unknown) (no (unknown) (unknown) Const (units (unkno wn) date) unknown) (unknown) (no (unknown) (unknown) Constitutional (units (unknown) date) unknown) (unknown) (no (unknown) (unknown) Constitutional: (units (unknown) date) Reports system unknown) reviewed and no additional complaints, except as (unknown) (no (unknown) (unknown) Continue to take (units (unknown) date) all of your unknown) medications as directed for the next couple days we (unknown) (no (unknown) (unknown) Course (units (unkno wn) date) unknown) (unknown) (no (unknown) (unknown) Creatinine 1.49 H (units (unknown) date) (0.66-1.25) mg/dL unknown) (unknown) (no (unknown) (unknown) : 1935 (units (unknown) date) Acct:[id number] unknown) (unknown) (no (unknown) (unknown) Date of Service: (units (unknown) date) 08/13/22 unknown) (unknown) (no (unknown) (unknown) Dementia (units (unkno wn) date) unknown) (unknown) (no (unknown) (unknown) Departure (units (unkn own) date) unknown) (unknown) (no (unknown) (unknown) Discharge Plan (units (unknown) date) unknown) (unknown) (no (unknown) (unknown) ECG Data (units (unkno wn) date) unknown) (unknown) (no (unknown) (unknown) ED Orders (units (unkn own) date) unknown) (unknown) (no (unknown) (unknown) EKG-12 Lead Stat (units (unknown) date) unknown) (unknown) (no (unknown) (unknown) ENT (units (unkno wn) date) unknown) (unknown) (no (unknown) (unknown) ER Physician: (units ( unknown) date) Ralph Fleming D.O. unknown) (unknown) (no (unknown) (unknown) Ears, Nose, Mouth, (units (unknown) date) and Throat: Reports unknown) system reviewed and no additional (unknown) (no (unknown) (unknown) Effort + (units (unkno wn) date) Inspection: normal unknown) respiratory effort (unknown) (no (unknown) (unknown) Emergency Report (units (unknown) date) unknown) (unknown) (no (unknown) (unknown) Eos # (Auto) 200 (units (unknown) date) (0-450) /uL unknown) (unknown) (no (unknown) (unknown) Eos % (Auto) 3.0 (units (unknown) date) (2-4) % unknown) (unknown) (no (unknown) (unknown) Estimated GFR 46 L (units (unknown) date) (>60) mL/min unknown) (unknown) (no (unknown) (unknown) Exam (units (unkno wn) date) unknown) (unknown) (no (unknown) (unknown) Extrem (units (unkno wn) date) unknown) (unknown) (no (unknown) (unknown) GI (units (unkno wn) date) unknown) (unknown) (no (unknown) (unknown) Gastrointestinal (units (unknown) date) unknown) (unknown) (no (unknown) (unknown) Gastrointestinal: (units (unknown) date) Reports system unknown) reviewed and no additional complaints, except (unknown) (no (unknown) (unknown) General (units (unkno wn) date) unknown) (unknown) (no (unknown) (unknown) General: (units (o wn) date) comfortable and No unknown) ill appearing (unknown) (no (unknown) (unknown) General: edema (1+ (units (unknown) date) pitting edema unknown) bilateral lower extremities) (unknown) (no (unknown) (unknown) General: no rashes (units (unknown) date) or lesions noted unknown) (unknown) (no (unknown) (unknown) General: patient (units (unknown) date) alert, patient unknown) awake, moves all extremities and patient (unknown) (no (unknown) (unknown) Globulin 3.0 (units (u nknown) date) (1.7-4.1) g/dL unknown) (unknown) (no (unknown) (unknown) Glucose 99 (units (unk nown) date) (80-110) mg/dL unknown) (unknown) (no (unknown) (unknown) HENMT (units (unkno wn) date) unknown) (unknown) (no (unknown) (unknown) HPI - General (units ( unknown) date) Adult unknown) (unknown) (no (unknown) (unknown) HPI narrative: (units (unknown) date) unknown) (unknown) (no (unknown) (unknown) Hct 38.8 L (41-53) (units (unknown) date) % unknown) (unknown) (no (unknown) (unknown) He is unsure (units (u nknown) date) exactly what unknown) medications that he takes. He states that he takes ?8 (unknown) (no (unknown) (unknown) Head: normal to (units (unknown) date) inspection and unknown) normocephalic (unknown) (no (unknown) (unknown) Hgb 12.7 L (units (unk nown) date) (13.5-17.5) g/dL unknown) (unknown) (no (unknown) (unknown) History of Present (units (unknown) date) Illness unknown) (unknown) (no (unknown) (unknown) Imaging Data (units (u nknown) date) unknown) (unknown) (no (unknown) (unknown) Initial Vital (units ( unknown) date) Signs unknown) (unknown) (no (unknown) (unknown) Initial Vital (units ( unknown) date) Signs: unknown) (unknown) (no (unknown) (unknown) Inspection: normal (units (unknown) date) to inspection unknown) (unknown) (no (unknown) (unknown) Instructions: DI (units (unknown) date) for Shortness of unknown) Breath (unknown) (no (unknown) (unknown) Integumentary/[place] (units (unknown) date) sts unknown) (unknown) (no (unknown) (unknown) Interpretation: (units (unknown) date) unknown) (unknown) (no (unknown) (unknown) [facility] (units (unknown) date) [address] unknown) [place] [address] (unknown) (no (unknown) (unknown) Lab Data (units (unkno wn) date) unknown) (unknown) (no (unknown) (unknown) Lab Results (units (un known) date) unknown) (unknown) (no (unknown) (unknown) Lab results (units (un known) date) reviewed: Yes I unknown) reviewed the patient's lab results. (unknown) (no (unknown) (unknown) Labs: (units (unkno wn) date) unknown) (unknown) (no (unknown) (unknown) Lasix/furosemide. (units (unknown) date) His also unknown) confirmed that she does not think that he has (unknown) (no (unknown) (unknown) Left axis (units (unkn own) date) deviation unknown) (unknown) (no (unknown) (unknown) Left bundle branch (units (unknown) date) block unknown) (unknown) (no (unknown) (unknown) Limitations: other (units (unknown) date) (Dementia) unknown) (unknown) (no (unknown) (unknown) Lipase 217 (units (unk nown) date) (23-300) U/L unknown) (unknown) (no (unknown) (unknown) Lipase Stat (units (un known) date) unknown) (unknown) (no (unknown) (unknown) Lymph # (Auto) (units (unknown) date) 1900 ([id number]) unknown) /uL (unknown) (no (unknown) (unknown) Lymph % (Auto) (units (unknown) date) 30.5 (25-40) % unknown) (unknown) (no (unknown) (unknown) MCH 30.1 (26-34) (units (unknown) date) PG unknown) (unknown) (no (unknown) (unknown) MCHC 32.8 (30-36) (units (unknown) date) % unknown) (unknown) (no (unknown) (unknown) MCV 91.9 (80-100) (units (unknown) date) fL unknown) (unknown) (no (unknown) (unknown) MDM Narrative (units ( unknown) date) unknown) (unknown) (no (unknown) (unknown) Magnesium 2.1 (units ( unknown) date) (1.6-2.3) mg/dL unknown) (unknown) (no (unknown) (unknown) Magnesium Stat (units (unknown) date) unknown) (unknown) (no (unknown) (unknown) Medical Decision (units (unknown) date) Making unknown) (unknown) (no (unknown) (unknown) Medical History (units (unknown) date) (Reviewed 08/13/22 unknown) @ 04:58 by Ralph Fleming DO) (unknown) (no (unknown) (unknown) Medical decision (units (unknown) date) making narrative: unknown) (unknown) (no (unknown) (unknown) Medication (units (unk nown) date) Instructions unknown) Recorded (unknown) (no (unknown) (unknown) Mode of arrival: (units (unknown) date) Ambulatory unknown) (unknown) (no (unknown) (unknown) [place] # (Auto) 700 (units (unknown) date) (0-900) /uL unknown) (unknown) (no (unknown) (unknown) [place] % (Auto) 11.0 (units (unknown) date) (3-14) % unknown) (unknown) (no (unknown) (unknown) NT-Pro-B Natriuret (units (unknown) date) Pep 1730 H (<450) unknown) pg/mL (unknown) (no (unknown) (unknown) NT-proBNP (units (unkn own) date) (BNP-Adult 18+) unknown) Stat (unknown) (no (unknown) (unknown) Neuro (units (unkno wn) date) unknown) (unknown) (no (unknown) (unknown) Neut # (Auto) 3500 (units (unknown) date) (0120-7001) /uL unknown) (unknown) (no (unknown) (unknown) Neut % (Auto) 54.6 (units (unknown) date) (50-75) % unknown) (unknown) (no (unknown) (unknown) New (units (unkno wn) date) unknown) (unknown) (no (unknown) (unknown) No Known Drug (units ( unknown) date) Allergies Allergy unknown) Verified 08/13/22 03:27 (unknown) (no (unknown) (unknown) No acute (units (unkno wn) date) cardiopulmonary unknown) abnormality is identified (unknown) (no (unknown) (unknown) No prior to (units (un known) date) compare to. From unknown) what I can get with talking with him and his (unknown) (no (unknown) (unknown) Ordered: (units (unkno wn) date) unknown) (unknown) (no (unknown) (unknown) Orders (units (unkno wn) date) unknown) (unknown) (no (unknown) (unknown) Oxygen Delivery (units (unknown) date) Method 08/13/22 unknown) 03:27 (unknown) (no (unknown) (unknown) Oxygen Delivery (units (unknown) date) Method Room Air unknown) (unknown) (no (unknown) (unknown) Patient (units (unkno wn) date) Disposition: Home unknown) (unknown) (no (unknown) (unknown) Patient History (units (unknown) date) unknown) (unknown) (no (unknown) (unknown) Patient denies (units (unknown) date) chest pain denies unknown) shortness of breath and time of my exam. His (unknown) (no (unknown) (unknown) Patient is an (units ( unknown) date) 86-year-old male. unknown) Here with his . Somewhat difficult to (unknown) (no (unknown) (unknown) Patient: (units (unkno wn) date) Juarez Freeman unknown) MR#: M (unknown) (no (unknown) (unknown) Plt Count 178 (units ( unknown) date) (150-400) X103/uL unknown) (unknown) (no (unknown) (unknown) Potassium 3.6 (units ( unknown) date) (3.4-5.1) mmol/L unknown) (unknown) (no (unknown) (unknown) Prescriptions: (units (unknown) date) unknown) (unknown) (no (unknown) (unknown) Previous Rx's (units ( unknown) date) unknown) (unknown) (no (unknown) (unknown) Pulse Oximetry 99 (units (unknown) date) 08/13/22 03:27 unknown) (unknown) (no (unknown) (unknown) Pulse Oximetry 99 (units (unknown) date) unknown) (unknown) (no (unknown) (unknown) Pulse Rate 65 (units ( unknown) date) 08/13/22 03:27 unknown) (unknown) (no (unknown) (unknown) Pulse Rate 65 (units ( unknown) date) unknown) (unknown) (no (unknown) (unknown) RBC 4.22 L (units (unk nown) date) (4.5-5.9) X106/uL unknown) (unknown) (no (unknown) (unknown) RDW 16.8 H (units (unk nown) date) (11.6-14.8) % unknown) (unknown) (no (unknown) (unknown) Radiologist's (units ( unknown) date) Impression: unknown) (unknown) (no (unknown) (unknown) Rate: regular rate (units (unknown) date) unknown) (unknown) (no (unknown) (unknown) Referrals: (units (unk nown) date) unknown) (unknown) (no (unknown) (unknown) Related Data (units (u nknown) date) unknown) (unknown) (no (unknown) (unknown) Resp (units (unkno wn) date) unknown) (unknown) (no (unknown) (unknown) Respiratory Rate (units (unknown) date) 18 08/13/22 03:27 unknown) (unknown) (no (unknown) (unknown) Respiratory Rate (units (unknown) date) 18 unknown) (unknown) (no (unknown) (unknown) Respiratory (units (un known) date) unknown) (unknown) (no (unknown) (unknown) Respiratory: (units (u nknown) date) Reports system unknown) reviewed and no additional complaints, except as (unknown) (no (unknown) (unknown) Result diagrams: (units (unknown) date) unknown) (unknown) (no (unknown) (unknown) Review of Systems (units (unknown) date) unknown) (unknown) (no (unknown) (unknown) Rhythm: regular (units (unknown) date) rhythm unknown) (unknown) (no (unknown) (unknown) Shortness of (units (u nknown) date) Breath unknown) (unknown) (no (unknown) (unknown) Signed By: (units (unk nown) date) unknown) (unknown) (no (unknown) (unknown) Sinus rhythm (units (u nknown) date) unknown) (unknown) (no (unknown) (unknown) Skin (units (unkno wn) date) unknown) (unknown) (no (unknown) (unknown) Skin/Breast: (units (u nknown) date) Reports system unknown) reviewed and no additional complaints, except as (unknown) (no (unknown) (unknown) Smoking Status: (units (unknown) date) Never smoker unknown) (unknown) (no (unknown) (unknown) Social History (units (unknown) date) (Reviewed 08/13/22 unknown) @ 04:58 by Ralph Fleming DO) (unknown) (no (unknown) (unknown) Sodium 143 (units (unk nown) date) (137-145) mmol/L unknown) (unknown) (no (unknown) (unknown) Source: patient (units (unknown) date) unknown) (unknown) (no (unknown) (unknown) Stated complaint: (units (unknown) date) sob unknown) (unknown) (no (unknown) (unknown) Substance Use (units ( unknown) date) Type: does not use unknown) (unknown) (no (unknown) (unknown) Temperature 97.9 F (units (unknown) date) 08/13/22 03:27 unknown) (unknown) (no (unknown) (unknown) Temperature 97.9 F (units (unknown) date) unknown) (unknown) (no (unknown) (unknown) Time Seen by (units (u nknown) date) Provider: 08/13/22 unknown) 03:20 (unknown) (no (unknown) (unknown) Total Bilirubin (units (unknown) date) 0.9 (0.2-1.3) mg/dL unknown) (unknown) (no (unknown) (unknown) Total Creatine (units (unknown) date) Kinase 465 H unknown) (55-170) U/L (unknown) (no (unknown) (unknown) Total Protein 7.3 (units (unknown) date) (6.3-8.2) g/dL unknown) (unknown) (no (unknown) (unknown) Troponin + CK (units ( unknown) date) Cardiac Panel Stat unknown) (unknown) (no (unknown) (unknown) Troponin I 0.018 (units (unknown) date) (0.01-0.034) ng/mL unknown) (unknown) (no (unknown) (unknown) Ventricular rate (units (unknown) date) is 62 unknown) (unknown) (no (unknown) (unknown) Vital Signs - 8 hr (units (unknown) date) unknown) (unknown) (no (unknown) (unknown) Vital Signs (units (un known) date) unknown) (unknown) (no (unknown) (unknown) Vital signs: (units (u nknown) date) unknown) (unknown) (no (unknown) (unknown) WBC 6.4 (4.5-11.0) (units (unknown) date) X103/uL unknown) (unknown) (no (unknown) (unknown) XR chest 1V Stat (units (unknown) date) unknown) (unknown) (no (unknown) (unknown) [Embedded Image (units (unknown) date) Not Available] unknown) (unknown) (no (unknown) (unknown) actually ascertain (units (unknown) date) why he is here. unknown) Initial reports were that he was having some (unknown) (no (unknown) (unknown) any medications (units (unknown) date) that cause him to unknown) urinate. He states he is not taking (unknown) (no (unknown) (unknown) are going to start (units (unknown) date) you on a medicine unknown) called Lasix/furosemide. It was sent to (unknown) (no (unknown) (unknown) as documented (units ( unknown) date) unknown) (unknown) (no (unknown) (unknown) breath. I have low (units (unknown) date) suspicion for unknown) pneumonia. He is asymptomatic. Does not have (unknown) (no (unknown) (unknown) chest pain. A 3rd (units (unknown) date) time he stated that unknown) he was not having chest pain or shortness (unknown) (no (unknown) (unknown) complaints, except (units (unknown) date) as documented unknown) (unknown) (no (unknown) (unknown) confused (units (unkno wn) date) unknown) (unknown) (no (unknown) (unknown) documented (units (unk nown) date) unknown) (unknown) (no (unknown) (unknown) electronically (units (unknown) date) transmitted to the unknown) pharmacy of his choice. He was given written (unknown) (no (unknown) (unknown) findings (units (unkno wn) date) consistent with an unknown) upper respiratory infection. This medicine was (unknown) (no (unknown) (unknown) for a follow-up. (units (unknown) date) Return to the unknown) emergency department for any new or worsening (unknown) (no (unknown) (unknown) furosemide 20 mg (units (unknown) date) tablet (Lasix) 20 unknown) mg PO DAILY 3 days #3 tabs 08/13/22 (unknown) (no (unknown) (unknown) furosemide [Lasix] (units (unknown) date) 20 mg tablet unknown) (unknown) (no (unknown) (unknown) he has had issues (units (unknown) date) with shortness of unknown) breath specifically with exertion. Plan (unknown) (no (unknown) (unknown) he was having (units ( unknown) date) problems breathing unknown) which is why he woke up his and asked her (unknown) (no (unknown) (unknown) he was stating (units (unknown) date) that he was not unknown) having any shortness of breath but he was having (unknown) (no (unknown) (unknown) increasing it for (units (unknown) date) the next couple unknown) days could potentially help his shortness of (unknown) (no (unknown) (unknown) medicines ?for his (units (unknown) date) heart. Some of them unknown) he takes multiple times a day and some (unknown) (no (unknown) (unknown) of breath but that (units (unknown) date) he was having a lot unknown) of phlegm running down the back of his (unknown) (no (unknown) (unknown) of medicines that (units (unknown) date) he takes as well. unknown) At the time of my initial evaluation he (unknown) (no (unknown) (unknown) of them he takes (units (unknown) date) once a day but he unknown) does not know the names. His is unsure (unknown) (no (unknown) (unknown) pitting edema in (units (unknown) date) both of his lower unknown) extremities. His BNP is somewhat elevated. (unknown) (no (unknown) (unknown) return (units (unkno wn) date) precautions. The unknown) patient and his expressed agreement plan. (unknown) (no (unknown) (unknown) shortness of (units (u nknown) date) breath specifically unknown) with exertion and there were other times that (unknown) (no (unknown) (unknown) states that his (units (unknown) date) biggest complaint unknown) was that he was having pain in his right hip (unknown) (no (unknown) (unknown) symptoms. (units (unkn own) date) unknown) (unknown) (no (unknown) (unknown) [employer] and (units (unknown) date) you can pick it up unknown) later today and start taking it today. It (unknown) (no (unknown) (unknown) throat. He (units (unk nown) date) currently states he unknown) feels okay but apparently earlier this evening (unknown) (no (unknown) (unknown) to bring him to (units (unknown) date) the emergency unknown) department. He is no lower extremity swelling. (unknown) (no (unknown) (unknown) to on this (units (unk nown) date) medication. I unknown) figure that even if he was on this medication (unknown) (no (unknown) (unknown) troponin is (units (un known) date) negative. Chest unknown) x-ray is relatively unremarkable. He does have (unknown) (no (unknown) (unknown) where he recently (units (unknown) date) received unknown) immunizations. (unknown) (no (unknown) (unknown) will be is to put (units (unknown) date) him on Lasix for unknown) the next couple days. He states he is not on (unknown) (no (unknown) (unknown) will just be for (units (unknown) date) the next 3 days. I unknown) recommend you contact your primary doctor Result panel 125 (unknown) (no (unknown) (unknown) (no value) (units (unk nown) date) unknown) (unknown) (no (unknown) (unknown) [phone] (units (unkn own) date) unknown) (unknown) (no (unknown) (unknown) 08/16/22 17:23 (units (unknown) date) unknown) (unknown) (no (unknown) (unknown) 08/16/22 17:27 (units (unknown) date) unknown) (unknown) (no (unknown) (unknown) 08/16/22 (units (unkno wn) date) unknown) (unknown) (no (unknown) (unknown) 17:24 (units (unkno wn) date) unknown) (unknown) (no (unknown) (unknown) Acetaminophen (units ( unknown) date) Stat unknown) (unknown) (no (unknown) (unknown) Age/Sex: 86 / M (units (unknown) date) unknown) (unknown) (no (unknown) (unknown) Allergies (units (unkn own) date) unknown) (unknown) (no (unknown) (unknown) Allergy/AdvReac (units (unknown) date) Type Severity unknown) Reaction Status Date / Time (unknown) (no (unknown) (unknown) Blood Pressure (units (unknown) date) 151/65 H 08/16/22 unknown) 17:24 (unknown) (no (unknown) (unknown) Blood Pressure (units (unknown) date) 151/65 H unknown) (unknown) (no (unknown) (unknown) Chief Complaint: (units (unknown) date) Psychiatric unknown) Symptoms (unknown) (no (unknown) (unknown) Traci Ervin (units (unknown) date) , [Primary unknown) Care Provider] (unknown) (no (unknown) (unknown) Complete Blood (units (unknown) date) Count AUTO DIFF unknown) Stat (unknown) (no (unknown) (unknown) Comprehensive (units ( unknown) date) Metabolic Panel unknown) Stat (unknown) (no (unknown) (unknown) Consult to SENIOR LIVING SALES COUNSELOR - (units (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) Stat (unknown) (no (unknown) (unknown) Course (units (unkno wn) date) unknown) (unknown) (no (unknown) (unknown) : 1935 (units (unknown) date) Acct:[id number] unknown) (unknown) (no (unknown) (unknown) Date of Service: (units (unknown) date) 08/16/22 unknown) (unknown) (no (unknown) (unknown) Dementia (units (unkno wn) date) unknown) (unknown) (no (unknown) (unknown) Departure (units (unkn own) date) unknown) (unknown) (no (unknown) (unknown) Discharge Plan (units (unknown) date) unknown) (unknown) (no (unknown) (unknown) ED Orders (units (unkn own) date) unknown) (unknown) (no (unknown) (unknown) ER Physician: (units ( unknown) date) Meg Urias unknown) (unknown) (no (unknown) (unknown) Emergency Report (units (unknown) date) unknown) (unknown) (no (unknown) (unknown) Ethanol (ETOH) (units (unknown) date) Stat unknown) (unknown) (no (unknown) (unknown) Exam (units (unkno wn) date) unknown) (unknown) (no (unknown) (unknown) Free T4, Direct (units (unknown) date) Thyroxine Stat unknown) (unknown) (no (unknown) (unknown) General (units (unkno wn) date) unknown) (unknown) (no (unknown) (unknown) HPI - Psych (units (un known) date) unknown) (unknown) (no (unknown) (unknown) Initial Vital (units ( unknown) date) Signs unknown) (unknown) (no (unknown) (unknown) Initial Vital (units ( unknown) date) Signs: unknown) (unknown) (no (unknown) (unknown) [facility] (units (unknown) date) [address] unknown) [place] [id number] (unknown) (no (unknown) (unknown) Medical History (units (unknown) date) (Reviewed unknown) 08/13/22 @ 04:58 by Ralph Fleming DO) (unknown) (no (unknown) (unknown) Mode of arrival: (units (unknown) date) Ambulatory unknown) (unknown) (no (unknown) (unknown) No Known Drug (units ( unknown) date) Allergies Allergy unknown) Verified 08/13/22 03:27 (unknown) (no (unknown) (unknown) Ordered: (units (unkno wn) date) unknown) (unknown) (no (unknown) (unknown) Orders (units (unkno wn) date) unknown) (unknown) (no (unknown) (unknown) Oxygen Delivery (units (unknown) date) Method 08/16/22 unknown) 17:24 (unknown) (no (unknown) (unknown) Oxygen Delivery (units (unknown) date) Method Room Air unknown) (unknown) (no (unknown) (unknown) Patient History (units (unknown) date) unknown) (unknown) (no (unknown) (unknown) Patient: (units (unkno wn) date) Juarez Freeman unknown) MR#: M (unknown) (no (unknown) (unknown) Pulse Oximetry (units (unknown) date) 99 08/16/22 17:24 unknown) (unknown) (no (unknown) (unknown) Pulse Oximetry (units (unknown) date) 99 unknown) (unknown) (no (unknown) (unknown) Pulse Rate 64 (units ( unknown) date) 08/16/22 17:24 unknown) (unknown) (no (unknown) (unknown) Pulse Rate 64 (units ( unknown) date) unknown) (unknown) (no (unknown) (unknown) Referrals: (units (unk nown) date) unknown) (unknown) (no (unknown) (unknown) Related Data (units (u nknown) date) unknown) (unknown) (no (unknown) (unknown) Respiratory Rate (units (unknown) date) 18 08/16/22 17:24 unknown) (unknown) (no (unknown) (unknown) Respiratory Rate (units (unknown) date) 18 unknown) (unknown) (no (unknown) (unknown) Salicylate Stat (units (unknown) date) unknown) (unknown) (no (unknown) (unknown) Signed By: (units (unk nown) date) unknown) (unknown) (no (unknown) (unknown) Smoking Status: (units (unknown) date) Never smoker unknown) (unknown) (no (unknown) (unknown) Social History (units (unknown) date) (Reviewed unknown) 08/13/22 @ 04:58 by Ralph Fleming DO) (unknown) (no (unknown) (unknown) Source: patient (units (unknown) date) and family unknown) (unknown) (no (unknown) (unknown) Stated (units (unkno wn) date) Complaint: SI unknown) (unknown) (no (unknown) (unknown) Substance Use (units ( unknown) date) Type: does not unknown) use (unknown) (no (unknown) (unknown) Temperature 97.8 (units (unknown) date) F 08/16/22 17:24 unknown) (unknown) (no (unknown) (unknown) Temperature 97.8 (units (unknown) date) F unknown) (unknown) (no (unknown) (unknown) Thyroid (units (unkno wn) date) Stimulating unknown) Hormone Stat (unknown) (no (unknown) (unknown) Time Seen by (units (u nknown) date) Provider: unknown) 08/16/22 19:12 (unknown) (no (unknown) (unknown) Urine Drug (units (unk nown) date) Screen, Rapid unknown) Stat (unknown) (no (unknown) (unknown) Vital Signs - 8 (units (unknown) date) hr unknown) (unknown) (no (unknown) (unknown) Vital Signs (units (un known) date) unknown) (unknown) (no (unknown) (unknown) Vital signs: (units (u nknown) date) unknown) Result panel 126 (unknown) (no (unknown) (unknown) (no value) (units (unk nown) date) unknown) (unknown) (no (unknown) (unknown) <Electronically (units (unknown) date) signed by Meg unknown) Estrada Urias MD> (unknown) (no (unknown) (unknown) [phone] (units (unkn own) date) unknown) (unknown) (no (unknown) (unknown) 08/16/22 17:23 (units (unknown) date) unknown) (unknown) (no (unknown) (unknown) 08/16/22 17:27 (units (unknown) date) unknown) (unknown) (no (unknown) (unknown) 08/16/22 1945 (units ( unknown) date) unknown) (unknown) (no (unknown) (unknown) 08/16/22 (units (unkno wn) date) unknown) (unknown) (no (unknown) (unknown) 17:24 (units (unkno wn) date) unknown) (unknown) (no (unknown) (unknown) 60+ years (units (unkn own) date) accompanies him. unknown) While she is a bit more alert, she does note that he (unknown) (no (unknown) (unknown) 86-year-old (units (unk nown) date) gentleman wanted unknown) his to bring him into the emergency department (unknown) (no (unknown) (unknown) 86-year-old (units (un known) date) gentleman with unknown) severe and progressive dementia who presents to the (unknown) (no (unknown) (unknown) Acetaminophen (units ( unknown) date) Stat unknown) (unknown) (no (unknown) (unknown) Activity (units (unkno wn) date) Restrictions/Flo unknown) tional Instructions: (unknown) (no (unknown) (unknown) Acute (units (unkno wn) date) situational unknown) disturbance, Dementia (unknown) (no (unknown) (unknown) Age/Sex: 86 / M (units (unknown) date) unknown) (unknown) (no (unknown) (unknown) Allergies (units (unkn own) date) unknown) (unknown) (no (unknown) (unknown) Allergy/AdvReac (units (unknown) date) Type Severity unknown) Reaction Status Date / Time (unknown) (no (unknown) (unknown) Blood Pressure (units (unknown) date) 151/65 H 08/16/22 unknown) 17:24 (unknown) (no (unknown) (unknown) Blood Pressure (units (unknown) date) 151/65 H unknown) (unknown) (no (unknown) (unknown) Chief Complaint: (units (unknown) date) Psychiatric unknown) Symptoms (unknown) (no (unknown) (unknown) Traci Ervin (units (unknown) date) , MD [Primary unknown) Care Provider] (unknown) (no (unknown) (unknown) Clinical (units (unkno wn) date) Impression: unknown) (unknown) (no (unknown) (unknown) Complete Blood (units (unknown) date) Count AUTO DIFF unknown) Stat (unknown) (no (unknown) (unknown) Comprehensive (units ( unknown) date) Metabolic Panel unknown) Stat (unknown) (no (unknown) (unknown) Consult to [facility] [place] - (units (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) Stat (unknown) (no (unknown) (unknown) Course (units (unkno wn) date) unknown) (unknown) (no (unknown) (unknown) : 1935 (units (unknown) date) Acct:[id number] unknown) (unknown) (no (unknown) (unknown) Date of Service: (units (unknown) date) 08/16/22 unknown) (unknown) (no (unknown) (unknown) Dementia (units (unkno wn) date) unknown) (unknown) (no (unknown) (unknown) Departure (units (unkn own) date) unknown) (unknown) (no (unknown) (unknown) Discharge Plan (units (unknown) date) unknown) (unknown) (no (unknown) (unknown) ED Orders (units (unkn own) date) unknown) (unknown) (no (unknown) (unknown) ER Physician: (units ( unknown) date) Meg Urias unknown) (unknown) (no (unknown) (unknown) Emergency Report (units (unknown) date) unknown) (unknown) (no (unknown) (unknown) Ethanol (ETOH) (units (unknown) date) Stat unknown) (unknown) (no (unknown) (unknown) Exam (units (unkno wn) date) unknown) (unknown) (no (unknown) (unknown) Free T4, Direct (units (unknown) date) Thyroxine Stat unknown) (unknown) (no (unknown) (unknown) General (units (unkno wn) date) unknown) (unknown) (no (unknown) (unknown) General: Alert (units (unknown) date) appropriate in no unknown) acute distress (unknown) (no (unknown) (unknown) HPI - Psych (units (un known) date) unknown) (unknown) (no (unknown) (unknown) HPI Narrative: (units (unknown) date) unknown) (unknown) (no (unknown) (unknown) He was seen by (units (unknown) date) our dialysis social worker unknown) and was given counseling resources. I think (unknown) (no (unknown) (unknown) History of (units (unk nown) date) Present Illness unknown) (unknown) (no (unknown) (unknown) I am sorry that (units (unknown) date) you are unknown) frustrated with loss of freedoms and ability to (unknown) (no (unknown) (unknown) I do encourage (units (unknown) date) you to talk to unknown) her primary physician with your appointment on (unknown) (no (unknown) (unknown) I wish you the (units (unknown) date) best unknown) (unknown) (no (unknown) (unknown) Initial Vital (units ( unknown) date) Signs unknown) (unknown) (no (unknown) (unknown) Initial Vital (units ( unknown) date) Signs: unknown) (unknown) (no (unknown) (unknown) Instructions: (units ( unknown) date) Dementia unknown) (unknown) (no (unknown) (unknown) [facility] (units (unknown) date) [address] [place] [address] unknown) [place] [address] (unknown) (no (unknown) (unknown) MDM - Psych (units (un known) date) unknown) (unknown) (no (unknown) (unknown) MDM Narrative (units ( unknown) date) unknown) (unknown) (no (unknown) (unknown) Medical History (units (unknown) date) (Reviewed unknown) 08/13/22 @ 04:58 by Ralph Fleming DO) (unknown) (no (unknown) (unknown) Medical decision (units (unknown) date) making narrative: unknown) (unknown) (no (unknown) (unknown) Mode of arrival: (units (unknown) date) Ambulatory unknown) (unknown) (no (unknown) (unknown) Neurologic: (units (un known) date) Grossly intact no unknown) obvious asymmetries or abnormalities (unknown) (no (unknown) (unknown) No Known Drug (units ( unknown) date) Allergies Allergy unknown) Verified 08/13/22 03:27 (unknown) (no (unknown) (unknown) Ordered: (units (unkno wn) date) unknown) (unknown) (no (unknown) (unknown) Orders (units (unkno wn) date) unknown) (unknown) (no (unknown) (unknown) Oxygen Delivery (units (unknown) date) Method 08/16/22 unknown) 17:24 (unknown) (no (unknown) (unknown) Oxygen Delivery (units (unknown) date) Method Room Air unknown) (unknown) (no (unknown) (unknown) Patient (units (unkno wn) date) Disposition: Home unknown) (unknown) (no (unknown) (unknown) Patient History (units (unknown) date) unknown) (unknown) (no (unknown) (unknown) Patient: (units (unkno wn) date) Juarez Freeman unknown) MR#: M (unknown) (no (unknown) (unknown) Psych: Dementia, (units (unknown) date) unable to finish unknown) a complete sentence or thought, tangential (unknown) (no (unknown) (unknown) Pulse Oximetry (units (unknown) date) 99 08/16/22 17:24 unknown) (unknown) (no (unknown) (unknown) Pulse Oximetry (units (unknown) date) 99 unknown) (unknown) (no (unknown) (unknown) Pulse Rate 64 (units ( unknown) date) 08/16/22 17:24 unknown) (unknown) (no (unknown) (unknown) Pulse Rate 64 (units ( unknown) date) unknown) (unknown) (no (unknown) (unknown) ROS (units (unkno wn) date) Unobtainable: unknown) Unobtainable due to mental condition (unknown) (no (unknown) (unknown) Referrals: (units (unk nown) date) unknown) (unknown) (no (unknown) (unknown) Related Data (units (u nknown) date) unknown) (unknown) (no (unknown) (unknown) Respiratory Rate (units (unknown) date) 18 08/16/22 17:24 unknown) (unknown) (no (unknown) (unknown) Respiratory Rate (units (unknown) date) 18 unknown) (unknown) (no (unknown) (unknown) Respiratory: (units (u nknown) date) Able to speak in unknown) full sentences, no obvious respiratory distress (unknown) (no (unknown) (unknown) Review of (units (unkn own) date) Systems unknown) (unknown) (no (unknown) (unknown) Salicylate Stat (units (unknown) date) unknown) (unknown) (no (unknown) (unknown) Signed By: (units (unk nown) date) unknown) (unknown) (no (unknown) (unknown) Skin: No obvious (units (unknown) date) rashes, warm and unknown) dry (unknown) (no (unknown) (unknown) Smoking Status: (units (unknown) date) Never smoker unknown) (unknown) (no (unknown) (unknown) Social History (units (unknown) date) (Reviewed unknown) 08/13/22 @ 04:58 by Ralph Fleming DO) (unknown) (no (unknown) (unknown) Source: patient (units (unknown) date) and family unknown) (unknown) (no (unknown) (unknown) Stated (units (unkno wn) date) Complaint: SI unknown) (unknown) (no (unknown) (unknown) Substance Use (units ( unknown) date) Type: does not unknown) use (unknown) (no (unknown) (unknown) Temperature 97.8 (units (unknown) date) F 08/16/22 17:24 unknown) (unknown) (no (unknown) (unknown) Temperature 97.8 (units (unknown) date) F unknown) (unknown) (no (unknown) (unknown) Thyroid (units (unkno wn) date) Stimulating unknown) Hormone Stat (unknown) (no (unknown) (unknown) Time Seen by (units (u nknown) date) Provider: unknown) 08/16/22 19:12 (unknown) (no (unknown) (unknown) Friday. I would (units (unknown) date) also encourage unknown) both urine your to look at additional (unknown) (no (unknown) (unknown) Unfortunately (units ( unknown) date) memory issues and unknown) challenges in continuing to live independently (unknown) (no (unknown) (unknown) Urine Drug (units (unk nown) date) Screen, Rapid unknown) Stat (unknown) (no (unknown) (unknown) Vital Signs - 8 (units (unknown) date) hr unknown) (unknown) (no (unknown) (unknown) Vital Signs (units (un known) date) unknown) (unknown) (no (unknown) (unknown) Vital signs: (units (u nknown) date) unknown) (unknown) (no (unknown) (unknown) are something (units ( unknown) date) that every adult unknown) needs to deal with and this is not an acute (unknown) (no (unknown) (unknown) as this is going (units (unknown) date) to allow you help unknown) with getting some of the household tasks and (unknown) (no (unknown) (unknown) chores done that (units (unknown) date) you seem to be unknown) frustrated that you are unable to complete (unknown) (no (unknown) (unknown) cognitively (units (un known) date) challenging unknown) issues for both his mother and father are going to be (unknown) (no (unknown) (unknown) completely care (units (unknown) date) for yourself and unknown) your home in the way that you want to. (unknown) (no (unknown) (unknown) emergency (units (unkn own) date) department for unknown) uncertain reasons. Ostensibly wants to allow himself (unknown) (no (unknown) (unknown) family about (units (u nknown) date) dementia care. unknown) Have asked our dialysis social worker to contact his son for (unknown) (no (unknown) (unknown) have an (units (unkno wn) date) appointment with unknown) his primary care doctor on Friday. (unknown) (no (unknown) (unknown) have any medical (units (unknown) date) options for him unknown) he is discharged home encouraged him to keep (unknown) (no (unknown) (unknown) he is supposed (units (unknown) date) to be doing with unknown) himself, there is projects to be done at home (unknown) (no (unknown) (unknown) his appointment (units (unknown) date) on Friday with unknown) his primary care doctor. (unknown) (no (unknown) (unknown) in not being (units (u nknown) date) able to do all unknown) the things that he was once able to do. His of (unknown) (no (unknown) (unknown) is frustrated (units ( unknown) date) that he can no unknown) longer drive. He is having difficulty sleeping but (unknown) (no (unknown) (unknown) living situations (units (unknown) date) such as an unknown) assisted living facility that may have an option to (unknown) (no (unknown) (unknown) medical problem (units (unknown) date) that I am going unknown) to be able to fix from the emergency department. (unknown) (no (unknown) (unknown) more appropriate (units (unknown) date) approach is going unknown) to be a discussion with the rest of the (unknown) (no (unknown) (unknown) problematic and (units (unknown) date) will likely unknown) progress fairly rapidly. At this point I do not (unknown) (no (unknown) (unknown) progress to a (units ( unknown) date) dementia care unknown) unit should that become necessary. The setting such (unknown) (no (unknown) (unknown) progressive (units (un known) date) dementia issues. unknown) There are no physical complaints today. He does (unknown) (no (unknown) (unknown) sentence or (units (un known) date) follow-through on unknown) a complete thought. Has no active suicidal (unknown) (no (unknown) (unknown) simply wants to (units (unknown) date) be use denies and unknown) she to does not seem to have much insight into (unknown) (no (unknown) (unknown) that he is not (units (unknown) date) able to follow unknown) through. He had no specific medical complaints. (unknown) (no (unknown) (unknown) then sleeps (units (un known) date) during the day. unknown) He continues to ask perseverating questions about (unknown) (no (unknown) (unknown) thinking, (units (unkn own) date) word-finding unknown) difficulties, confabulation (unknown) (no (unknown) (unknown) thoughts or (units (un known) date) plans. Clearly he unknown) is frustrated with his memory loss and difficulty (unknown) (no (unknown) (unknown) to be shot or (units ( unknown) date) use denies. 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 He is unknown) not cognitively alert enough to complete a full (unknown) (no (unknown) (unknown) whom we do have (units (unknown) date) a phone number unknown) distal let him know that some of these (unknown) (no (unknown) (unknown) yourself. (units (unkn own) date) unknown) Social History date description facility 2022-08-13 00:00 Never smoked tobacco (finding) [facility] 2022-08-16 00:00 Never smoked tobacco (finding) [facility] Vital Signs date measurement value units 2022-08-13 00:00 BMI 30.5 kg/m2 2022-08-13 00:00 BP_diastolic 77 mmHg 2022-08-13 00:00 BP_systolic 185 mmHg 2022-08-13 00:00 heart_rate 56 /min 2022-08-13 00:00 height_metric 182.88 cm 2022-08-13 00:00 height_standard 72 in 2022-08-13 00:00 o2_saturation 96 % 2022-08-13 00:00 respiration_rate 18 /min 2022-08-13 00:00 temperature_metric 36.61 C 2022-08-13 00:00 temperature_standard 97.9 F 2022-08-13 00:00 weight_metric 102.05 kg 2022-08-13 00:00 weight_standard 224.98 lb 2022-08-16 00:00 BP_diastolic 73 mmHg 2022-08-16 00:00 BP_systolic 173 mmHg 2022-08-16 00:00 heart_rate 65 /min 2022-08-16 00:00 o2_saturation 99 % 2022-08-16 00:00 respiration_rate 16 /min 2022-08-16 00:00 temperature_metric 36.56 C 2022-08-16 00:00 temperature_standard 97.8 F 2022-08-16 00:00 weight_metric 96.16 kg 2022-08-16 00:00 weight_standard 212 lb
[2022-11-12 00:19] LABS: BASOPHILS % (AUTO) 0.6 %; EOSINOPHILS # (AUTO) 0.4 10^3/uL (0.0-0.7); EOSINOPHILS % (AUTO) 5.8 %; HCT - HEMATOCRIT 36.7 % (42.0-52.0); HGB - HEMOGLOBIN 11.2 g/dL (14.0-18.0); MEAN CORPUSCULAR HEMOGLOBIN 30.9 pg (27.0-31.0); MEAN CORPUSCULAR HGB CONC 30.5 g/dL (32.0-36.0); MEAN CORPUSCULAR VOLUME 101.1 fL (80.0-94.0); MEAN PLATELET VOLUME 10.8 fL (7.4-11.4); MONOCYTES # (AUTO) 0.8 10^3/uL (0.0-1.0); MONOCYTES % (AUTO) 11.8 %; NEUTROPHILS # (AUTO) 3.4 10^3/uL (1.5-6.6); NEUTROPHILS % (AUTO) 51.5 %; PLT - PLATELET COUNT 125 10^3/uL (130-450); RED BLOOD COUNT 3.63 10^6/uL (4.70-6.10); RED CELL DISTRIBUTION WIDTH 14.6 % (12.0-15.0); WHITE BLOOD COUNT 6.7 x10^3/uL (4.8-10.8)
[2022-11-12] MEDS ORDERED: iohexoL-300 100 ML VIAL ONE (00:24)
[2022-11-12 00:32] LABS: ALBUMIN 3.5 g/dL (3.2-5.5); ALBUMIN/GLOBULIN RATIO 1.4 (1.0-2.2); BILIRUBIN,TOTAL 0.4 mg/dL (0.2-1.0); CREATININE 1.3 mg/dL (0.6-1.2)
[2022-11-12 00:36] LABS: SLIDE REVIEW? Indicated
[2022-11-12 00:37] LABS: PLATELET ESTIMATE, MANUAL NORMAL (130-450,000) (NORMAL); PLATELET MORPHOLOGY PLATELET CLUMPING (NORMAL); RBC MORPHOLOGY (MULTIPLE) 1+ MACROCYTOSIS (NORMAL); WBC MORPHOLOGY (MULTIPLE) NORMAL APPEARANCE (NORMAL)
[2022-11-12 01:11] LABS: BILIRUBIN,URINE NEGATIVE (NEGATIVE); GLUCOSE, URINE (UA) NEGATIVE (NEGATIVE); KETONES,URINE (UA) NEGATIVE (NEGATIVE); LEUKOCYTE ESTERASE, URINE NEGATIVE (NEGATIVE); NITRITE,URINE NEGATIVE (NEGATIVE); OCCULT BLOOD,URINE NEGATIVE (NEGATIVE); PROTEIN,URINE NEGATIVE (NEGATIVE); UROBILINOGEN,URINE 0.2 (NORMAL) E.U./dL (NORMAL)
[2022-11-12 01:15] LABS: CLARITY,URINE CLEAR (CLEAR)
--- NOTE | 2022-11-12 01:52 | CT Report ---
PROCEDURE: ABDOMEN/PELVIS W INDICATIONS: Report abd pain CONTRAST: Omni 300 100ml TECHNIQUE: After the administration of IV contrast, 5 mm thick sections acquired from the diaphragms to the symp hysis. 5 mm thick coronal and sagittal reformats were acquired. For radiation dose reduction, the f ollowing was used: automated exposure control, adjustment of mA and/or kV according to patient size. COMPARISON: None. FINDINGS: Image quality: Excellent. ABDOMEN: Lung bases: Bilateral posterior gravitational changes and linear atelectasis. The heart is diffusely enlarged and there is heavy atherosclerotic calcification. Median sternotomy changes are partially im aged. No hiatal hernia. Solid organs: Liver and spleen are normal in size and enhancement. Gallbladder is partially decompr essed. Biliary system is non dilated. Pancreas enhances normally. No adrenal nodules.A few right in trarenal calcifications are punctated nonobstructing. Symmetric renal enhancement. No hydronephrosis or perinephric inflammation. No hydroureter. Peritoneum and bowel: Extensive sigmoid diverticulosis. Normal appendix. Increased quantity of solid proximal colon stool. Normal stomach and small bowel. Bowel loops demonstrate normal wall thickness and caliber. No free fluid or air. Nodes and vessels: No retroperitoneal or mesenteric adenopathy by size criteria. Aorta and inferior vena cava are normal in size. Moderate calcified and noncalcified abdominal and common iliac artery atherosclerosis. Miscellaneous: Tiny umbilical hernia containing fat. PELVIS: Genitourinary: Bladder wall thickness is normal. The prostate gland is surgically absent. Miscellaneous: No inguinal hernias or adenopathy. 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 Bones: No suspicious bony lesions. No vertebral body compression fractures. Diffuse degeneration o f the lower lumbar spine. IMPRESSION: 1. Prostatectomy and no evidence of urinary obstruction. 2. Punctate nonobstructing right intrarenal calculi. 3. Colonic diverticulosis without acute diverticulitis. 4. 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 Reviewed by: Suzy Chandler MD on 11/12/2022 1:50 AM PST Approved by: Suzy Chandler MD on 11/12/2022 1:50 AM PST Station ID: [id number]
[2022-11-12] MEDS ORDERED: iohexoL-300 100 ML VIAL IVP ONE (02:00)
[2022-11-12 02:05] VITALS: BP 182/55
--- NOTE | 2022-11-12 02:07 | ED Physician Documentation ---
History of Present Illness - Stated complaint Stated Complaint: M - Chief complaint Chief Complaint: Abd Pain - Additonal information Additional information: Patient is 87-year-old male brought in by EMS with concern for abdominal pain and irritation at the glans of his penis. Patient has known history of severe dementia and is unable to provide history, history provided per EMS through nursing staff as patient was complaining of right lower quadrant abdominal pain and has had redness and irritation to the tip of his penis. Patient denies any acute complaints. Further history limited by his altered mentation. PD PAST MEDICAL HISTORY - Past Medical History Past Medical History: Yes Cardiovascular: Hypertension Neuro: Dementia - Present Medications Home Medications: Ambulatory Orders Medication Instructions Recorded Confirmed Amlodipine Besylate [Norvasc] 2.5 mg PO DAILY 08/30/22 11/11/22 Aspirin EC [Ecotrin] 81 mg PO DAILY 08/30/22 11/11/22 Donepezil [Aricept] 5 mg PO DAILY 08/30/22 11/11/22 Memantine [Namenda] 5 mg PO DAILY 08/30/22 11/11/22 Metoprolol Succinate [Toprol Xl] 25 mg PO DAILY 08/30/22 11/11/22 QUEtiapine [SEROquel] 50 mg PO QPM 20 Days #20 tablet 09/02/22 11/11/22 Bimatoprost 0.01% Ophth Dops 1 drops EACHEYE QPM 11/11/22 11/11/22 [Lumigan 0.01% Ophth Drops] Levothyroxine [Synthroid] 88 mcg PO QDAC 11/11/22 11/11/22 Lisinopril [Zestril] 40 mg PO DAILY 11/11/22 11/11/22 Clotrimazole 1% Cream [Lotrimin 1% 15 gm TOP BID #15 ml 11/12/22 Cream] - Allergies Allergies/Adverse Reactions: Allergies Allergy/AdvReac Type Severity Reaction Status Date / Time No Known Drug Allergies Allergy Verified 08/30/22 10:02 - Social History Does the pt smoke?: No Smoking Status: Never smoker Results - Vitals Vitals: Vital Signs - 24 hr 11/11/22 11/11/22 11/12/22 21:38 23:37 02:05 Temperature 36.8 C Heart Rate 50 L 48 L 53 L Respiratory 16 16 16 Rate Blood Pressure 158/58 H 131/62 H 182/55 H O2 Saturation 99 100 99 Oxygen O2 Source Room air - EKG (time done) 0007 Rate: Rate (enter#) (51) Rhythm: NSR [place]: Normal Intervals: Normal NC, LBBB QRS: Normal Ischemia: Non specific changes Compare to prior EKG: Changed from prior EKG (New T wave inversions V4-V5) - Labs Labs: Laboratory Tests 11/12/22 11/12/22 11/12/22 00:09 00:09 00:09 WBC 6.7 RBC 3.63 L Hgb 11.2 L Hct 36.7 L MCV 101.1 H MCH 30.9 MCHC 30.5 L RDW 14.6 Plt Count 125 L MPV 10.8 Neut # (Auto) 3.4 Lymph # (Auto) 2.0 [place] # (Auto) 0.8 Eos # (Auto) 0.4 Baso # (Auto) 0.0 Absolute Nucleated RBC 0.00 Nucleated RBC % 0.0 Manual Slide Review Indicated WBC Morphology NORMAL APPEARANCE Platelet Estimate NORMAL (130-450,000) Platelet Morphology PLATELET CLUMPING RBC Morph Micro Appear 1+ MACROCYTOSIS Sodium 146 H Potassium 4.0 Chloride 114 H Carbon Dioxide 25 Anion Gap 7.0 BUN 28 H Creatinine 1.3 H Estimated GFR (MDRD) 52 L Glucose 87 Lactic Acid 1.2 Calcium 9.0 Total Bilirubin 0.4 AST 24 ALT 38 Alkaline Phosphatase 48 Total Protein 6.0 L Albumin 3.5 Globulin 2.5 Albumin/Globulin Ratio 1.4 Lipase 44 Urine Color Urine Clarity Urine pH Ur Specific [place] Urine Protein Urine Glucose (UA) Urine Ketones Urine Occult Blood Urine Nitrite Urine Bilirubin Urine Urobilinogen Ur Leukocyte Esterase Ur Microscopic Review Urine Culture Comments 11/12/22 00:52 WBC RBC Hgb Hct MCV MCH MCHC RDW Plt Count MPV Neut # (Auto) Lymph # (Auto) [place] # (Auto) Eos # (Auto) Baso # (Auto) Absolute Nucleated RBC Nucleated RBC % Manual Slide Review WBC Morphology Platelet Estimate Platelet Morphology RBC Morph Micro Appear Sodium Potassium Chloride Carbon Dioxide Anion Gap BUN Creatinine Estimated GFR (MDRD) Glucose Lactic Acid Calcium Total Bilirubin AST ALT Alkaline Phosphatase Total Protein Albumin Globulin Albumin/Globulin Ratio Lipase Urine Color YELLOW Urine Clarity CLEAR Urine pH 6.0 Ur Specific [place] >=1.030 H Urine Protein NEGATIVE Urine Glucose (UA) NEGATIVE Urine Ketones NEGATIVE Urine Occult Blood NEGATIVE Urine Nitrite NEGATIVE Urine Bilirubin NEGATIVE Urine Urobilinogen 0.2 (NORMAL) Ur Leukocyte Esterase NEGATIVE Ur Microscopic Review NOT INDICATED Urine Culture Comments NOT INDICATED PD Medical Decision Making - ED course Complexity details: reviewed old records, reviewed results, re-evaluated patient, considered differential ED course: Patient is 87-year-old male presenting to the emergency department with concern for abdominal pain as well as what appears to be 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 Afebrile, hemodynamically stable. Patient is demented and history comes via EMS. Labs obtained demonstrated a chronic low-level anemia and chronic renal insufficiency without acute changes from patient's most recent baseline labs. EKG showed some new T wave inversions but patient did not complain of any kind of chest pain or chest discomfort. 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 His physical exam does demonstrate findings consistent with balanitis and I will start him on Schull metrazol cream. There does not appear to be any life threat at this time and I will discharge for follow-up with primary care. Clear return precautions given. Departure - Departure Disposition: 01 Home, Self Care Clinical Impression: Balanitis Prescriptions: Clotrimazole 1% Cream [Lotrimin 1% Cream] 15 gm TOP BID #15 ml Comments: Thank you for allowing us to care for Juarez today at [facility]. Today in the emergency department he was evaluated for any possible life- threatening medical emergency. The testing performed in the emergency department today including his blood work, EKG and the CT scan of his abdomen and pelvis were all very reassuring. He does appear to be experiencing a blood mitis form of inflammation involving the foreskin and tip of his penis. I will be discharging him with a medicated clotrimazole cream to be used twice daily until his symptoms resolved. Please have him follow-up with his primary care doctor soon as possible. If it anytime he has new or worsening symptoms please do not hesitate to return.
== END 2022-11-12 02:44 | disposition home or self-care (01) ==
LOC: EDUNIT# → ED 21:38
DX: N48.1 Balanitis (principal); D64.9 Anemia, unspecified; N18.9 Chronic kidney disease, unspecified
CPT/HCPCS: 36415; 51798; 74177; 80053; 81003; 83605; 83690; 85025; 93005; 99284; Q9967; 81001; 87086

== ENCOUNTER 2022-11-12 02:44 | Outpatient (CLI) | payer MEDICARE, OTHER | END 2022-11-12 02:45 | disposition home or self-care (01) | LOC: EMS 02:44 | PROVIDERS: ATTEND Student in an Organized Health Care Education/Training Program | DX: R41.0 Disorientation, unspecified (principal); R39.9 Unspecified symptoms and signs involving the genitourinary system | CPT/HCPCS: A0425; A0428 ==

== ENCOUNTER 2023-03-06 19:05 | Outpatient (CLI) | payer MEDICARE, OTHER | END 2023-03-06 23:59 | disposition critical access hospital (66) | LOC: EMS 19:05 | DX: R45.6 Violent behavior (principal) | CPT/HCPCS: A0425; A0429 ==

== ENCOUNTER 2023-03-06 19:22 | Emergency (ER) | payer MEDICARE, OTHER ==
[2023-03-06] MEDS ORDERED: QUEtiapine 25 MG TABLET PO STA (19:34)
[2023-03-06] MEDS ORDERED: haloperidoL 1 MG TABLET PO STA (19:34)
[2023-03-06 19:35] VITALS: BP 156/54
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
== END 2023-03-06 19:58 | disposition home or self-care (01) ==
LOC: EDUNIT# → ED 19:22
DX: G30.9 Alzheimer's disease, unspecified (principal); F02.C11 Dementia in other diseases classified elsewhere, severe, with agitation; I10 Essential (primary) hypertension
CPT/HCPCS: 99283; A9270

== ENCOUNTER 2023-03-06 19:58 | Outpatient (CLI) | payer MEDICARE, OTHER | END 2023-03-06 23:59 | disposition home or self-care (01) | LOC: EMS 19:58 | PROVIDERS: ATTEND Emergency Medicine | DX: F03.911 Unspecified dementia, unspecified severity, with agitation (principal) | CPT/HCPCS: A0425; A0428 ==

== ENCOUNTER 2023-08-03 07:24 | Outpatient (CLI) | payer MEDICARE, OTHER | END 2023-08-03 07:25 | disposition critical access hospital (66) | LOC: EMS 07:24 | DX: F03.911 Unspecified dementia, unspecified severity, with agitation (principal) | CPT/HCPCS: A0425; A0429 ==

== ENCOUNTER 2023-08-03 08:06 | Emergency (ER) | payer MEDICARE, OTHER ==
[2023-08-03 08:26] VITALS: BP 162/50; O2SAT 97
[2023-08-03] MEDS: haloperidoL 1 MG TABLET PO SCH ×2 (08:33→08:39)
[2023-08-03] MEDS ORDERED: HALOPERIDOL 5 MG/ML VIAL IM STA (08:52)
[2023-08-03] MEDS ORDERED: QUEtiapine 25 MG TABLET PO STA (09:10)
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
== END 2023-08-03 12:13 | disposition home or self-care (01) ==
LOC: EDUNIT# → ED 08:06
DX: G31.83 Neurocognitive disorder with Lewy bodies (principal); F02.818 Dementia in other diseases classified elsewhere, unspecified severity, with other behavioral disturbance; I10 Essential (primary) hypertension; E03.9 Hypothyroidism, unspecified; Z79.899 Other long term (current) drug therapy; Z79.82 Long term (current) use of aspirin
CPT/HCPCS: 96372; 99283; 99284; A9270; 80053; 83690; 85025

== ENCOUNTER 2023-08-03 12:16 | Outpatient (CLI) | payer MEDICARE, OTHER | END 2023-08-03 12:17 | disposition home or self-care (01) | LOC: EMS 12:16 | PROVIDERS: ATTEND Emergency Medicine | DX: F03.911 Unspecified dementia, unspecified severity, with agitation (principal); R41.0 Disorientation, unspecified | CPT/HCPCS: A0425; A0428 ==

== ENCOUNTER 2023-08-16 07:53 | Outpatient (CLI) | payer MEDICARE, OTHER | END 2023-08-16 07:54 | disposition critical access hospital (66) | LOC: EMS 07:53 | DX: F03.911 Unspecified dementia, unspecified severity, with agitation (principal); Z78.1 Physical restraint status | CPT/HCPCS: A0425; A0429 ==

== ENCOUNTER 2023-08-16 08:07 | Emergency (ER) | payer MEDICARE, OTHER ==
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
[2023-08-16] MEDS ORDERED: HALOPERIDOL 5 MG/ML VIAL IM STA ×3 (08:45→19:28)
[2023-08-16] MEDS ORDERED: QUEtiapine 25 MG TABLET PO STA ×2 (10:09→16:39)
[2023-08-16] MEDS ORDERED: traZODone 50 MG TABLET PO STA (10:09)
[2023-08-16] MEDS ORDERED: OLANZapine 10 MG VIAL IM STA (11:39)
[2023-08-16] MEDS ORDERED: ACETAMINOPHEN 500 MG TABLET PO STA (17:35)
[2023-08-16] MEDS ORDERED: LORazepam 1 MG TABLET PO PRN (18:39)
[2023-08-16] MEDS ORDERED: ACETAMINOPHEN 325 MG TABLET PO PRN (18:39)
[2023-08-16] MEDS ORDERED: LORazepam 2 MG/ML VIAL IM STA (19:29)
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
[2023-08-16 20:08] VITALS: O2SAT 98
[2023-08-16] MEDS ORDERED: traZODone 50 MG TABLET PO SCH (21:00)
[2023-08-16] MEDS ORDERED: QUEtiapine 25 MG TABLET PO SCH (21:00)
[2023-08-16] MEDS ORDERED: DONEPEZIL 5 MG TABLET PO SCH (21:00)
[2023-08-17] MEDS ORDERED: DONEPEZIL 5 MG TABLET PO SCH (09:00)
[2023-08-17] MEDS ORDERED: METOPROLOL SUCCINATE 25 MG TABLET PO SCH (09:00)
[2023-08-17] MEDS ORDERED: amLODIPine 5 MG TABLET PO SCH (09:00)
[2023-08-17] MEDS ORDERED: MEMANTINE 5 MG TABLET PO SCH (09:00)
== END 2023-08-16 20:02 | disposition home or self-care (01) ==
LOC: EDUNIT# → ED 08:07
DX: G31.83 Neurocognitive disorder with Lewy bodies (principal); F02.818 Dementia in other diseases classified elsewhere, unspecified severity, with other behavioral disturbance; I10 Essential (primary) hypertension; E03.9 Hypothyroidism, unspecified; Z79.82 Long term (current) use of aspirin; Z79.899 Other long term (current) drug therapy
CPT/HCPCS: 99283; 99284; A9270; J2060; J8499; 80053; 80307; 80320; 80329; 82550; 82607; 82746; 83690; 83735; 84443; 85025

== ENCOUNTER 2023-08-16 19:54 | Outpatient (CLI) | payer MEDICARE, OTHER | END 2023-08-16 19:55 | disposition home or self-care (01) | LOC: EMS 19:54 | PROVIDERS: ATTEND Emergency Medicine | DX: F03.911 Unspecified dementia, unspecified severity, with agitation (principal); R41.0 Disorientation, unspecified; Z78.1 Physical restraint status | CPT/HCPCS: A0425; A0428 ==

== ENCOUNTER 2023-12-05 22:27 | Outpatient (CLI) | payer MEDICARE, OTHER | END 2023-12-05 23:59 | disposition critical access hospital (66) | LOC: EMS 22:27 | DX: S01.112A Laceration without foreign body of left eyelid and periocular area, initial encounter (principal); W01.0XXA Fall on same level from slipping, tripping and stumbling without subsequent striking against object, initial encounter; Y93.01 Activity, walking, marching and hiking; Y92.129 Unspecified place in nursing home as the place of occurrence of the external cause | CPT/HCPCS: A0425; A0429 ==

== ENCOUNTER 2023-12-05 23:03 | Emergency (ER) | payer MEDICARE, OTHER ==
--- NOTE | 2023-12-06 00:12 | ED Physician Documentation ---
PD HPI HEAD INJURY - Stated complaint Stated Complaint: GLF/FACE LAC - Chief complaint Chief Complaint: Laceration - History obtained from History obtained from: EMS - Additional information Additional information: HPI from EMS. Due to dementia/confusion, patient is unable to contribute to HPI/[facility]Mj [facility]DRAG[facility] from [facility]. Per EMS report, patient had a witnessed trip and fall forward, striking his head on a carpeted floor causing forehead laceration. Patient is not taking any blood-thinning medications. POLST form is brought in with the patient and it indicates DNR and comfort measures only Review of Systems Unable to obtain: Dementia PD PAST MEDICAL HISTORY - Past Medical History Past Medical History: Yes Cardiovascular: Hypertension Respiratory: None Neuro: Dementia Endocrine/Autoimmune: HyPOthyroidism HEENT: Glaucoma - Past Surgical History Past Surgical History: No - Present Medications Home Medications: Ambulatory Orders Medication Instructions Recorded Confirmed Aspirin EC [Ecotrin] 81 mg PO DAILY 08/30/22 12/05/23 Memantine [Namenda] 5 mg PO DAILY 08/30/22 12/05/23 Metoprolol Succinate [Toprol Xl] 25 mg PO DAILY 08/30/22 12/05/23 Levothyroxine [Synthroid] 88 mcg PO QDAC 11/11/22 12/05/23 Lisinopril [Zestril] 40 mg PO DAILY 11/11/22 12/05/23 Acetaminophen [Tylenol] 650 mg PO Q6H PRN 08/16/23 12/05/23 Citalopram [CeleXA] 10 mg PO DAILY PM 08/16/23 12/05/23 Donepezil [Aricept] 10 mg PO DAILY PM 08/16/23 12/05/23 LORazepam [Ativan] 1 mg PO Q6HR PRN 08/16/23 12/05/23 Loperamide [Imodium] 2 mg PO ONCE PRN 08/16/23 12/05/23 Magnesium Hydroxide [Milk of 2,400 mg PO QD PRN 08/16/23 12/05/23 Magnesia] QUEtiapine [SEROquel] 25 mg PO Q6HR PRN 08/16/23 12/05/23 Timolol 0.5% Ophth Drops [Timoptic 1 drops OP BID 08/16/23 12/05/23 0.5% Ophth Drops] Furosemide [Lasix] 40 mg PO DAILY 12/05/23 12/05/23 Haloperidol Lactate 2 mg TOP Q6HR PRN 12/05/23 12/05/23 Mag Hydrox/Aluminum Hyd/Simeth 30 ml PO Q4HR PRN 12/05/23 12/05/23 [Alum-Mag Hydroxide-Simeth Cup] Quetiapine Fumarate [Seroquel] 50 mg PO TID 12/05/23 12/05/23 Spironolactone [Aldactone] 25 mg PO DAILY 12/05/23 12/05/23 Trazodone HCl 100 mg PO BID 12/05/23 12/05/23 haloperidoL [Haldol] 1 mg PO PRN PRN 12/05/23 12/05/23 - Allergies Allergies/Adverse Reactions: Allergies Allergy/AdvReac Type Severity Reaction Status Date / Time No Known Drug Allergies Allergy Verified 12/05/23 23:18 - Social History Does the pt smoke?: No Smoking Status: Never smoker Does the pt drink ETOH?: No Does the pt have substance abuse?: No - Immunizations Immunizations: TDAP >10years/unknown - POLST Patient has POLST: Yes PD ED PE NORMAL - Vitals Vital signs reviewed: Yes - General General: No acute distress, Well developed/nourished, Other (asleep but awakens easily to verbal stimulation. gibberish answers to all questions and does not follow commands) - HEENT HEENT: PERRL - Neck Neck: Supple, no meningeal sign - Cardiac Cardiac: RRR - Respiratory Respiratory: No respiratory distress, Clear bilaterally PD ED PE EXPANDED - HEENT HEENT Visual: 1 - laceration (3.5 cm laceration with mild active oozing/bleeding. TTP but no bony step-off) Results - Vitals Vitals: Vital Signs - 24 hr 12/05/23 12/06/23 12/06/23 23:02 00:03 02:00 Temperature 36.3 C L Heart Rate 55 L 55 L 53 L Respiratory 16 20 20 Rate Blood Pressure 180/60 H 165/53 H 146/41 H O2 Saturation 100 100 100 12/06/23 12/06/23 12/06/23 02:51 02:54 03:00 Temperature Heart Rate 65 65 67 Respiratory 9 L 9 L Rate Blood Pressure 165/63 H 165/63 H 130/77 O2 Saturation 99 99 94 12/06/23 12/06/23 12/06/23 03:05 03:10 03:15 Temperature Heart Rate 64 62 62 Respiratory 16 Rate Blood Pressure 136/55 H 147/53 H 143/57 H O2 Saturation 94 94 93 12/06/23 12/06/23 12/06/23 03:20 03:30 03:45 Temperature Heart Rate 62 61 57 L Respiratory 14 10 L Rate Blood Pressure 162/58 H 176/47 H 166/47 H O2 Saturation 93 94 94 12/06/23 12/06/23 12/06/23 04:00 04:15 04:45 Temperature Heart Rate 56 L 58 L 57 L Respiratory 10 L 14 12 Rate Blood Pressure 160/53 H 175/53 H 174/49 H O2 Saturation 94 97 97 12/06/23 12/06/23 05:00 05:15 Temperature Heart Rate 52 L Respiratory 12 12 Rate Blood Pressure 165/46 H 172/47 H O2 Saturation 97 98 Oxygen O2 Source Room air Procedures - Laceration (location) Face Length in cm: 3.5 Wound type: Linear, Into subcut fat Anesthesia: Lidocaine 1% with epi Wound preparation: Chlorhexadine Skin layer closure: Nylon, Running, Size #-0 - enter number (4-0) Other: No complications, Other (Initial plan was to close wound after local infiltration of lidocaine; patient rapidly became agitated with injection of lidocaine, not following commands, ED review nurse unable to hold patient still for adequate local infiltration of lidocaine. He became combative and required procedural sedation) PD Medical Decision Making - ED course Complexity details: considered differential ED course: Patient presents with left-sided forehead laceration after witnessed trip and fall. Patient is brought in with his POLST form which indicates DNR and comfort measures only; for this reason, there were no tests performed tonight. As noted above, patient required chemical restraint in order to allow for closure of the forehead laceration (ketamine was used). Patient was held in the ED until he exhibited adequate recovery from the sedation. Departure - Departure Disposition: 01 Home, Self Care Clinical Impression: Laceration Condition: Good Instructions: ED Laceration Facial Sutr Tape Comments: No tests were undertaken tonight considering the POLST form indicating comfort- measures only. The forehead laceration was repaired with sutures (stitches). These will need to be taken out within a 7 to 10-day timeframe. This can be arranged with the primary care provider. Forms: PCP List Discharge Date/Time: 12/06/23 05:25
[2023-12-06] MEDS: LIDOCAINE 1%-EPI 1:100000 20 ML MDV SUBQ STA (01:08)
[2023-12-06] MEDS: KETAMINE 500 MG/10 ML VIAL IM STA (02:29)
--- NOTE | 2023-12-06 03:13 | ED Physician Documentation ---
Restraint [id number] - Immediate Situation Face to Face Evaluation Date: 12/06/23 Face to Face Evaluation Time: 02:50 Restraint Classification: Violent, chemical w/ physical hold - Patient's Reaction & Behaviors Safety: Non-compliant, Unable to Follow Commands Verbal: Screaming/Yelling Harm: Potential harm to self, Potential harm to others Physical: Aggressive behavior, Kicking - Behavioral Condition Attitude: Indifferent Behavior: Belligerent, Agitated Orientation: Disoriented to all Mood: Angry - Evaluation Pertinent History/Illicit Drugs/Medications/Results: dementia - Plan Need to Initiate/Renew Violent or Chemical Restraint: one-time IM ketamine with hold to facilitate wound closure; no need for reorder anticipated
[2023-12-06 05:25] VITALS: BP 172/47; O2SAT 98
== END 2023-12-06 05:25 | disposition home or self-care (01) ==
LOC: EDUNIT# → ED 23:03
DX: S01.01XA Laceration without foreign body of scalp, initial encounter (principal); W19.XXXA Unspecified fall, initial encounter; F03.90 Unspecified dementia, unspecified severity, without behavioral disturbance, psychotic disturbance, mood disturbance, and anxiety; I10 Essential (primary) hypertension; Z66 Do not resuscitate
CPT/HCPCS: 12013; 99283; 99285

== ENCOUNTER 2023-12-06 05:20 | Outpatient (CLI) | payer MEDICARE, OTHER | END 2023-12-06 23:59 | disposition home or self-care (01) | LOC: EMS 05:20 | PROVIDERS: ATTEND Emergency Medicine | DX: F03.90 Unspecified dementia, unspecified severity, without behavioral disturbance, psychotic disturbance, mood disturbance, and anxiety (principal); R41.0 Disorientation, unspecified; S01.81XD Laceration without foreign body of other part of head, subsequent encounter; W19.XXXD Unspecified fall, subsequent encounter | CPT/HCPCS: A0425; A0428 ==